=== PATIENT | female | born 1970 | race Caucasian/White ===

== ENCOUNTER 2017-02-01 14:52 | Emergency (ER) | payer MEDICARE, MEDICAID, OTHER | END 2017-02-01 17:53 | disposition left against medical advice (07) | LOC: ER 14:52 | DX: Z53.21 Procedure and treatment not carried out due to patient leaving prior to being seen by health care provider (principal) ==

== ENCOUNTER 2018-02-16 18:08 | Inpatient (IN) | payer MEDICARE, MEDICAID, OTHER ==
[2018-02-16] MEDS ORDERED: NORMAL SALINE 1000 ML 1,000 ML IV ONE (19:14)
--- NOTE | 2018-02-16 19:16 | ER Document Report ---
ED Medical Screen (RME) - General Mode of Arrival: Wheelchair TRAVEL OUTSIDE OF THE [place] 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 Mom states the patient has not been eating as much as normal either and has had decreased urine output. Mom states the patient seems "more delirious" as well. Mom states the patient has had one episode of diarrhea. Mom denies fevers, vomiting, or history of CHF. I have greeted and performed a rapid initial assessment of this patient. A comprehensive ED assessment and evaluation of the patient, analysis of test results, and completion of the medical decision making process will be conducted by additional ED providers. Review of systems: Given by mom at bedside Constitutional: Decrease oral intake. Denies Fevers. EENT: No symptoms reported Cardiovascular: No symptoms reported Respiratory: Cough Gastrointestinal: Diarrhea x1. Denies Vomiting. Genitourinary: No symptoms reported Musculoskeletal: No symptoms reported Skin: No symptoms reported Hematologic/Lymphatic: No symptoms reported Neurological/Psychological: No symptoms reported Yes All other systems reviewed and negative PHYSICAL EXAM GENERAL: Alert, shakes hand but otherwise does not follow commands or answer questions. More agitated than baseline, jumpy. No acute distress. HEAD: Normocephalic, atraumatic. EYES: Pupils equal, round, and reactive to light. Extraocular movements intact. Dry mucous membranes. ENT: Oral mucosa moist, tongue midline. NECK: Full range of motion. Supple. Trachea midline. LUNGS: Diffuse expiratory rhonchi, wet cough, no wheezes or rales. No respiratory distress. HEART: Tachycardic, regular rhythm. No murmurs, gallops, or rubs. ABDOMEN:Non-distended. EXTREMITIES: Moves all 4 extremities spontaneously. NEUROLOGICAL: Baseline according to mom at bedside. PSYCH: More agitated than normal SKIN: Warm, dry, normal turgor. No rashes or lesions noted. (ABBEY MYERS) - Related Data Allergies/Adverse Reactions: Penicillins Allergy (Verified 02/16/18 18:55) Past Medical History - Social History Chew tobacco use (# tins/day): No Frequency of alcohol use: None Drug Abuse: None - Past Medical History Cardiac Medical History: Denies: Hx Coronary Artery Disease, Hx Heart Attack, Hx Hypertension Pulmonary Medical History: Reports: Hx Pneumonia Denies: Hx Asthma, Hx Bronchitis, Hx COPD Neurological Medical History: Denies: Hx Cerebrovascular Accident, Hx Seizures Renal/ Medical History: Denies: Hx Peritoneal Dialysis Musculoskeltal Medical History: Denies Hx Arthritis Past Surgical History: Denies: Hx Hysterectomy, Hx Pacemaker - Immunizations Hx Diphtheria, Pertussis, Tetanus Vaccination: Yes <ABBEY MYERS - Last Filed: 02/16/18 19:22> - Vital signs Vitals: Temp Pulse Resp BP Pulse Ox 97.6 F 108 H 20 105/72 95 02/16/18 18:19 02/16/18 18:19 02/16/18 18:19 02/16/18 18:19 02/16/18 18:19 Course - Laboratory Result Diagrams: 02/16/18 19:45 02/16/18 19:45 <VALARIE LEAHY - Last Filed: 02/16/18 21:04> - Vital Signs Vital signs: Temp Pulse Resp BP Pulse Ox 97.6 F 108 H 20 105/72 95 02/16/18 18:19 02/16/18 18:19 02/16/18 18:19 02/16/18 18:19 02/16/18 18:19 - Laboratory Laboratory results interpreted by me: 02/16/18 02/16/18 02/16/18 19:45 19:45 19:45 RDW 15.9 H Seg Neuts % (Manual) 36 L Band Neutrophils % 32 H PT 22.7 H BUN 36 H Glucose 117 H Doctor's Discharge <ABBEY MYERS - Last Filed: 02/16/18 19:22> <VALARIE LEAHY - Last Filed: 02/16/18 21:04> - Discharge Referrals: WILBERT VELASQUEZ MD [Primary Care Provider] - Follow up as needed Scribe Documentation - Scribe Written by Umme:: Terri Bailey, 02/[id number] acting as scribe for :: Deep <ABBEY MYERS - Last Filed: 02/16/18 19:22>
[2018-02-16 20:01] LABS: VENOUS BLOOD BASE EXCESS 0.7 mmol/L; VENOUS BLOOD HCO3 26.9 mmol/L (20-32); VENOUS BLOOD PCO2 49.5 mmHg (35-63); VENOUS BLOOD PH 7.35 (7.30-7.42)
[2018-02-16 20:07] LABS: INTERNATIONAL RATION (INR) 1.89; PROTHROMBIN TIME 22.7 SEC (11.4-15.4)
[2018-02-16 20:12] LABS: ALANINE AMINOTRANSFERASE 24 U/L (9-52); ALBUMIN 4.2 g/dL (3.5-5.0); ALKALINE PHOSPHATASE 74 U/L (38-126); ANION GAP 15 (5-19); ASPARTATE AMINO TRANSFERASE 16 U/L (14-36); BILIRUBIN,DIRECT 0.3 mg/dL (0.0-0.4); BILIRUBIN,TOTAL 0.3 mg/dL (0.2-1.3); BLOOD UREA NITROGEN 36 mg/dL (7-20); CALCIUM 10.2 mg/dL (8.4-10.2); CARBON DIOXIDE 25 mmol/L (22-30); CHLORIDE 105 mmol/L (98-107); GLUCOSE 117 mg/dL (75-110); POTASSIUM 4.4 mmol/L (3.6-5.0); SODIUM 144.8 mmol/L (137-145); TOTAL PROTEIN 7.9 g/dL (6.3-8.2)
[2018-02-16 20:14] LABS: HEMATOCRIT 44.2 % (36.0-47.0); HEMOGLOBIN 14.6 g/dL (12.0-15.5); MEAN CORPUSCULAR HEMOGLOBIN 27.8 pg (27.0-33.4); MEAN CORPUSCULAR HGB CONC 33.1 g/dL (32.0-36.0); MEAN CORPUSCULAR VOLUME 84 fl (80-97); PLATELET COUNT 282 10^3/uL (150-450); RED BLOOD COUNT 5.27 10^6/uL (3.72-5.28); RED CELL DISTRIBUTION WIDTH 15.9 % (11.5-14.0); WHITE BLOOD COUNT 10.4 10^3/uL (4.0-10.5)
[2018-02-16 20:29] LABS: ABSOLUTE LYMPHOCYTES# (MANUAL) 2.5 10^3/uL (0.5-4.7); ABSOLUTE MONOCYTES # (MANUAL) 0.8 10^3/uL (0.1-1.4); ABSOLUTE NEUTROPHILS# (MANUAL) 7.1 10^3/uL (1.7-8.2); BASOPHILS % (MANUAL) 0 % (0-2); EOSINOPHILS % (MANUAL) 0 % (0-6); LYMPHOCYTES % (MANUAL) 24 % (13-45); MONOCYTES % (MANUAL) 8 % (3-13); SEGMENTED NEUTROPHILS % (MAN) 36 % (42-78); TOTAL CELLS COUNTED 100
--- NOTE | 2018-02-16 20:29 | RADIOLOGY REPORT (SQ) ---
EXAM DESCRIPTION: CHEST 2 VIEWS COMPLETED DATE/TIME: 02/16/2018 8:21 pm REASON FOR STUDY: cough, confusion COMPARISON: 03/13/2011 EXAM PARAMETERS: NUMBER OF VIEWS: two views TECHNIQUE: Digital Frontal and Lateral radiographic views of the chest acquired. RADIATION DOSE: NA LIMITATIONS: none FINDINGS: LUNGS AND PLEURA: Right lower lobe airspace disease. Lungs otherwise grossly clear. MEDIASTINUM AND HILAR STRUCTURES: No masses or contour abnormalities. HEART AND VASCULAR STRUCTURES: Heart stable in size. No evidence for failure. BONES: No acute findings. HARDWARE: None in the chest. OTHER: No other significant finding. IMPRESSION: RIGHT LOWER LOBE AIRSPACE DISEASE COMPATIBLE WITH PNEUMONIA. RECOMMEND FOLLOWUP RADIOGR APHS 4 TO 6 WEEKS TO ENSURE RESOLUTION. TECHNICAL DOCUMENTATION: JOB ID: [id number] [employer]- All Rights Reserved Reading location - IP/workstation name: [email or web address]
[2018-02-16 20:33] LABS: ANISOCYTOSIS SLIGHT; PLATELET COMMENT ADEQUATE
[2018-02-16 20:34] LABS: TOXIC VACUOLATION PRESENT
[2018-02-16 20:35] LABS: OVALOCYTES SLIGHT; POIKILOCYTOSIS SLIGHT; POLYCHROMASIA SLIGHT
[2018-02-16 20:36] LABS: BAND NEUTROPHILS % (MANUAL) 32 % (3-5)
[2018-02-16] MEDS ORDERED: CEFTRIAXONE INJ 1000 MG VIAL IV ONE (20:42)
--- NOTE | 2018-02-16 20:42 | ER Document Report ---
ED General - General Chief Complaint: Nonproductive Cough Stated Complaint: COUGH Time Seen by Provider: 02/16/18 19:04 Mode of Arrival: Wheelchair Notes: Patient is a 47-year-old female with a history of microcephaly and department for chief complaint of 5 days of worsening congested cough and mother states that since yesterday patient has been agitated, refusing anything, has reduced eating and drinking because of this. Mom states this is her "delirium" that she gets when she gets ill. No recorded fevers, no vomiting, only one episode of loose stools. Patient is on a pured diet, has only had pneumonia once before. 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 TRAVEL OUTSIDE OF THE [place] IN LAST 30 DAYS: No - Related Data Allergies/Adverse Reactions: Penicillins Allergy (Verified 02/16/18 18:55) Past Medical History - General Information source: Parent - Social History Smoking Status: Never Smoker Chew tobacco use (# tins/day): No Frequency of alcohol use: None Drug Abuse: None Lives with: Family Family History: Reviewed & Not Pertinent Patient has suicidal ideation: No Patient has homicidal ideation: No - Past Medical History Cardiac Medical History: Denies: Hx Coronary Artery Disease, Hx Heart Attack, Hx Hypertension Pulmonary Medical History: Reports: Hx Pneumonia Denies: Hx Asthma, Hx Bronchitis, Hx COPD Neurological Medical History: Denies: Hx Cerebrovascular Accident, Hx Seizures Renal/ Medical History: Denies: Hx Peritoneal Dialysis Musculoskeltal Medical History: Denies Hx Arthritis Surgical Hx: Negative Past Surgical History: Denies: Hx Hysterectomy, Hx Pacemaker - Immunizations Hx Diphtheria, Pertussis, Tetanus Vaccination: Yes Hx Pneumococcal Vaccination: 09/12/07 Review of Systems - Review of Systems Constitutional: See HPI EENT: No symptoms reported Cardiovascular: No symptoms reported Respiratory: See HPI Gastrointestinal: See HPI Genitourinary: No symptoms reported Female Genitourinary: No symptoms reported Musculoskeletal: No symptoms reported Skin: No symptoms reported Hematologic/Lymphatic: No symptoms reported Neurological/Psychological: See HPI Physical Exam - Vital signs Vitals: Temp Pulse Resp BP Pulse Ox 97.6 F 108 H 20 105/72 95 02/16/18 18:19 02/16/18 18:19 02/16/18 18:19 02/16/18 18:19 02/16/18 18:19 - Notes Notes: GENERAL: Patient nonverbal, restless, makes moaning sounds, does make eye contact, not responding to me otherwise HEAD: Normocephalic, atraumatic. EYES: Pupils equal, round, and reactive to light. Extraocular movements intact. ENT: Oral mucosa moist, tongue midline. NECK: Full range of motion. Supple. Trachea midline. LUNGS: Clear to auscultation bilaterally, no wheezes, rales, or rhonchi. No respiratory distress. Minimal tachypnea. Frequent congested sounding cough. HEART: Tachycardia with no extrasystoles noted. No murmur ABDOMEN: Soft, non-tender. Non-distended. Bowel sounds present in all 4 quadrants. EXTREMITIES: Moves all 4 extremities spontaneously. No edema, normal radial and dorsalis pedis pulses bilaterally. No cyanosis. BACK: no cervical, thoracic, lumbar midline tenderness. No saddle anesthesia, normal distal neurovascular exam. SKIN: Warm, dry, normal turgor. No rashes or lesions noted. Course - Re-evaluation Re-evalutation: Patient was frequent congested cough, soft abdomen, mildly agitated, nonverbal. Tachycardia noted, mom states her baseline blood pressure is 90s over 60s approximately. No fever. No hypoxia. Chemistry unremarkable, lactic acid is not elevated, venous blood gas is unremarkable. Suspect pneumonia, initiating antibiotics. Chest x-ray shows right lower lobe infiltrate, CBC shows no leukocytosis but significant bandemia at 32%. We lost initial access with the IV, will attempt to obtain more access. Spoke with Dr. Stallworth, internal medicine, patient will be admitted to telemetry. Spoke with mom about central line access, she declines, afterwards I was able to obtain 18-gauge right AC access and the nurse was able to obtain a 20-gauge left forearm access. Antibiotics and IV fluids infusing. Stable at time of admission. - Vital Signs Vital signs: Temp Pulse Resp BP Pulse Ox 97.6 F 108 H 19 106/66 93 02/16/18 18:19 02/16/18 18:19 02/16/18 21:31 02/16/18 21:31 02/16/18 21:31 - Laboratory Result Diagrams: 02/16/18 19:45 02/16/18 19:45 Laboratory results interpreted by me: 06/03/2902/16/18 02/16/18 19:45 19:45 19:45 RDW 15.9 H Seg Neuts % (Manual) 36 L Band Neutrophils % 32 H PT 22.7 H BUN 36 H Glucose 117 H Discharge - Discharge Clinical Impression: Tachycardia, Bandemia Pneumonia Qualifiers: Pneumonia type: due to unspecified organism Laterality: right Lung location: lower lobe of lung Qualified Code(s): J18.1 - Lobar pneumonia, unspecified organism Condition: Fair Disposition: ADMITTED INPATIENT Admitting Provider: Hospitalist Unit Admitted: Telemetry
[2018-02-16] MEDS ORDERED: AZITHROMYCIN INJ 500 MG VIAL IV ONE (20:43)
[2018-02-16] MEDS ORDERED: CETIRIZINE 10 MG TABLET PO ONE (22:02)
[2018-02-16] MEDS ORDERED: LORAZEPAM 1 MG TABLET PO ONE (22:02)
[2018-02-16] MEDS ORDERED: LORAZEPAM INJ 2 MG/1 ML VIAL IV ONE ×2 (22:10→22:55)
[2018-02-16] MEDS ORDERED: LORAZEPAM INJ 2 MG/1 ML VIAL ONE (22:13)
--- NOTE | 2018-02-16 22:54 | EKG REPORT ---
SEVERITY:- OTHERWISE NORMAL ECG - SINUS TACHYCARDIA : Confirmed by: Génesis Kunz MD 16-Feb-2018 22:53:17
[2018-02-16] MEDS ORDERED: LORAZEPAM INJ 2 MG/1 ML VIAL IV PRN (23:24)
[2018-02-16] MEDS ORDERED: ACETAMINOPHEN 650 MG SUPP.RECT PR PRN (23:48)
[2018-02-17] MEDS: NORMAL SALINE 1000 ML 1,000 ML IV PRN
[2018-02-17 05:43] LABS: ABSOLUTE EOSINOPHILS # (AUTO) 0.1 10^3/uL (0.0-0.6); ABSOLUTE LYMPHOCYTES (AUTO) 2.2 10^3/uL (0.5-4.7); ABSOLUTE MONOCYTES (AUTO) 1.1 10^3/uL (0.1-1.4); ABSOLUTE NEUT (AUTO) 5.7 10^3/uL (1.7-8.2); BASOPHILS % (AUTO) 0.1 % (0-2); EOSINOPHILS % (AUTO) 1.3 % (0-6); HEMATOCRIT 35.8 % (36.0-47.0); LYMPHOCYTES % (AUTO) 24.1 % (13-45); MEAN CORPUSCULAR HEMOGLOBIN 28.2 pg (27.0-33.4); MEAN CORPUSCULAR HGB CONC 32.9 g/dL (32.0-36.0); MEAN CORPUSCULAR VOLUME 86 fl (80-97); MONOCYTES % (AUTO) 12.4 % (3-13); PLATELET COUNT 187 10^3/uL (150-450); RED BLOOD COUNT 4.17 10^6/uL (3.72-5.28); SEGMENTED NEUTROPHILS % (AUTO) 62.1 % (42-78); TOTAL CELLS COUNTED % (AUTO) 100 %; WHITE BLOOD COUNT 9.2 10^3/uL (4.0-10.5)
--- NOTE | 2018-02-17 05:51 | PDOC H&P ---
History of Present Illness Admission Date/PCP: 02/16/18 23:04 WILBERT VELASQUEZ MD Patient complains of: Cough History of Present Illness: VANNA RM is a 47 year old female with history of microcephaly and recurrent aspiration. Presents with cough and agitation. In the emergency room she is found to have bandemia, nonproductive cough, hypothermia and tachycardia. She is found to have infiltrate of the right lower lobe suggestive of aspiration pneumonia. Started on empiric antibiotics and referred to the hospitalist for admission. Patient's mother is at bedside verifies full CODE STATUS and history of aspiration. Patient at baseline is unable to follow commands, requiring Ativan for sedation. Past Medical History Cardiac Medical History: Denies: Coronary Artery Disease, Myocardial Infarction, Hypertension Pulmonary Medical History: Reports: Pneumonia Denies: Asthma, Bronchitis, Chronic Obstructive Pulmonary Disease (COPD) Neurological Medical History: Denies: Seizures Musculoskeltal Medical History: Denies: Arthritis Hematology: Denies: Anemia Past Surgical History Past Surgical History: Denies: Hysterectomy, Pacemaker Social History Information Source: Relative Lives with: Family Smoking Status: Never Smoker Frequency of Alcohol Use: None Hx Recreational Drug Use: No Drugs: None Hx Prescription Drug Abuse: No - Advance Directive Resuscitation Status: Full Code Family History Family History: None Parental Family History Reviewed: Yes Children Family History Reviewed: Yes Sibling(s) Family History Reviewed.: Yes Medication/Allergy Home Medications: Align PO DAILY 07/30/11 Calcium 600 mg PO BID 07/30/11 Cetirizine HCl 10 mg PO DAILY 07/30/11 Docusate Sodium 100 mg PO BID 07/30/11 Fortical spray DAILY 07/30/11 Lactulose 6 tbs PO DAILY 07/30/11 Levothyroxine Sodium 0.1 mg PO DAILY 07/30/11 Magnesium PO DAILY 07/30/11 Megestrol Acetate 20 mg PO BID 07/30/11 Melatonin 5 mg PO HSP PRN 07/30/11 Miralax PO DAILY 07/30/11 Omeprazole 20 mg PO BID 07/30/11 Patanol drop BID 07/30/11 Vitamin E 400 mg PO DAILY 07/30/11 Allergies/Adverse Reactions: Penicillins Allergy (Verified 02/16/18 18:55) Review of Systems ROS unobtainable: Due to mental status Physical Exam Vital Signs: Temp Pulse Resp BP Pulse Ox 98.2 F 78 20 91/51 L 95 02/17/18 04:54 02/17/18 04:54 02/17/18 04:54 02/17/18 04:54 02/17/18 04:54 Pulse Oximeter Continuous Start: 02/16/18 23: 25 Freq: RTQ4 Status: Active Document 02/17/18 04:00 EST (Rec: 02/17/18 04:34 EST [email or web address]) Pulse Oximetry Assessment Equipment Usage Equipment Standby Continuous SpO2 Machine # [id number] Additional RT Notes Other Patient doesn't allow pulse ox to be placed on finger. Nurse aware. Intake & Output 02/15/18 02/16/18 02/17/18 11:59 11:59 11:59 Weight 37.8 kg General appearance: PRESENT: severe distress, thin. ABSENT: cooperative, disheveled Head exam: ABSENT: normocephalic Eye exam: PRESENT: conjunctiva pink, EOMI, PERRLA. ABSENT: scleral icterus Ear exam: PRESENT: normal external ear exam Mouth exam: PRESENT: dry mucosa, tongue midline Neck exam: ABSENT: carotid bruit, JVD, lymphadenopathy, thyromegaly Respiratory exam: PRESENT: accessory muscle use, crackles, decreased breath sounds, rales, retraction. ABSENT: chest wall tenderness Cardiovascular exam: PRESENT: RRR, tachycardia Pulses: PRESENT: normal dorsalis pedis pul Vascular exam: PRESENT: normal capillary refill GI/Abdominal exam: PRESENT: normal bowel sounds, soft. ABSENT: distended, guarding, mass, organolmegaly, rebound, tenderness Rectal exam: PRESENT: deferred Extremities exam: PRESENT: full ROM. ABSENT: calf tenderness, clubbing, pedal edema Neurological exam: PRESENT: altered, awake, CN II-XII grossly intact, aphasic. ABSENT: alert, oriented to person, oriented to place, oriented to time, oriented to situation, reflexes normal, abnormal gait Psychiatric exam: PRESENT: agitated Skin exam: PRESENT: dry, intact, warm. ABSENT: cyanosis, rash Results Impressions: Chest X-Ray 02/16/18 19:14 IMPRESSION: RIGHT LOWER LOBE AIRSPACE DISEASE COMPATIBLE WITH PNEUMONIA. RECOMMEND FOLLOWUP RADIOGRAPHS 4 TO 6 WEEKS TO ENSURE RESOLUTION. Assessment & Plan - Diagnosis (1) Pneumonia Qualifiers: Pneumonia type: aspiration pneumonia Laterality: right Lung location: lower lobe of lung Qualified Code(s): J18.1 - Lobar pneumonia, unspecified organism Is this a current diagnosis for this admission?: Yes Plan: Empiric antibiotics, albuterol and Atrovent, follow-up CBC and blood culture, speech therapy, consider NG tube and reconsideration of CODE STATUS (2) Bandemia Is this a current diagnosis for this admission?: Yes Plan: Concern for sepsis, follow-up CBC and lactic acid (3) Tachycardia Is this a current diagnosis for this admission?: Yes Plan: IV fluid challenge. - Time Time Spent: 50 to 70 Minutes - Inpatient Certification Medical Necessity: Need Close Monitoring Due to Risk of Patient Decompensation
[2018-02-17 05:56] LABS: ANION GAP 12 (5-19); BLOOD UREA NITROGEN 26 mg/dL (7-20); CALCIUM 8.3 mg/dL (8.4-10.2); CARBON DIOXIDE 20 mmol/L (22-30); CHLORIDE 114 mmol/L (98-107); GLUCOSE 98 mg/dL (75-110); HEMOGLOBIN 11.8 g/dL (12.0-15.5); POTASSIUM 4.2 mmol/L (3.6-5.0); SODIUM 145.8 mmol/L (137-145)
[2018-02-17] MEDS ORDERED: LEVOTHYROXINE SODIUM 0.025 MG TABLET PO SCH ×2 (06:00→10:00)
[2018-02-17] MEDS ORDERED: LEVOTHYROXINE SODIUM 0.1 MG TABLET PO SCH ×2 (06:00→10:00)
[2018-02-17] MEDS: HEPARIN SOD (PORCINE) 5,000 UNIT/ML 1 ML SYRINGE SUBCUT SCH ×3 (06:03→21:12)
[2018-02-17] MEDS: IPRATROPIUM/ALBUTEROL 0.5-2.5 MG/3 ML AMPUL NEB PRN (08:57)
[2018-02-17] MEDS: IPRATROPIUM/ALBUTEROL 0.5-2.5 MG/3 ML AMPUL NEB SCH ×2 (09:11→20:20)
[2018-02-17] MEDS ORDERED: SERTRALINE HCL 50 MG TABLET PO SCH (10:00)
[2018-02-17] MEDS: LEVOFLOXACIN 750 MG/D5W RTU 750 MG/150 ML RTUPB IV SCH (11:08)
[2018-02-17 11:25] LABS: PATH REVIEW PATHOLOGIST REVIEWED
[2018-02-17] MEDS ORDERED: RIVAROXABAN 10 MG TABLET PO ONE (14:00)
--- NOTE | 2018-02-17 18:09 | PDOC PROGRESS REPORT ---
Subjective Progress Note for:: 02/17/18 Subjective:: The patient is a 47-year-old female with history of microcephaly and recurrent issues with aspiration. She presented to the emergency room with increased cough and congestion. She was found to have evidence of sepsis with hypothermia, tachycardia, hypotension and a right lower lobe infiltrate suggestive of aspiration pneumonia. She was started on IV Levaquin. Today when I saw her sepsis symptoms are improving. She is sitting up in the bed and is eating with fairly good appetite. She has been evaluated by speech therapy who plans to perform a video swallow on Tuesday. I spoke at length to the family at the bedside regarding the plan of care. All of their questions have been answered. The patient herself is awake and alert but nonverbal. A review of systems could not be obtained. Reason For Visit: ASPIRATION PNEUMONIA, MICROCEPHALY Physical Exam Vital Signs: Temp Pulse Resp BP Pulse Ox 97.2 F 101 H 28 H 132/92 H 98 02/17/18 15:41 02/17/18 15:41 02/17/18 15:41 02/17/18 15:41 02/17/18 15:41 Pulse Oximeter Continuous Start: 02/16/18 23: 25 Freq: RTQ4 Status: Hold Document 02/17/18 09:06 [facility] (Rec: 02/17/18 09:09 [facility] [email or web address]) Pulse Oximetry Assessment Equipment Usage Equipment Standby Continuous SpO2 Machine # 0 Intake & Output 02/16/18 02/17/18 02/18/18 06:59 06:59 06:59 Intake Total 828 240 Balance 828 240 Weight 37.8 kg General appearance: PRESENT: other - She is an ill-appearing 47-year-old female. She is nonverbal. She is frequently coughing with congestion. She is in no acute distress. Head exam: PRESENT: atraumatic, normocephalic Mouth exam: PRESENT: moist, tongue midline Respiratory exam: PRESENT: other - Coarse breath sounds noted throughout all lung mars Cardiovascular exam: PRESENT: RRR. ABSENT: diastolic murmur, rubs, systolic murmur GI/Abdominal exam: PRESENT: normal bowel sounds, soft. ABSENT: distended, guarding, mass, organolmegaly, rebound, tenderness Rectal exam: PRESENT: deferred Extremities exam: PRESENT: full ROM. ABSENT: calf tenderness, clubbing, pedal edema Neurological exam: PRESENT: alert, awake, other - She has microcephaly Psychiatric exam: PRESENT: appropriate affect, normal mood. ABSENT: homicidal ideation, suicidal ideation Skin exam: PRESENT: dry, intact, warm. ABSENT: cyanosis, rash Results Laboratory Results: 02/17/18 05:31 02/17/18 05:31 02/17/18 02/17/18 05:31 05:31 WBC 9.2 RBC 4.17 Hgb 11.8 L D Hct 35.8 L MCV 86 MCH 28.2 MCHC 32.9 RDW 16.0 H Plt Count 187 Seg Neutrophils % 62.1 Lymphocytes % 24.1 Monocytes % 12.4 Eosinophils % 1.3 Basophils % 0.1 Absolute Neutrophils 5.7 Absolute Lymphocytes 2.2 Absolute Monocytes 1.1 Absolute Eosinophils 0.1 Absolute Basophils 0.0 Sodium 145.8 H Potassium 4.2 Chloride 114 H Carbon Dioxide 20 L Anion Gap 12 BUN 26 H Creatinine 0.59 Est GFR ( Amer) > 60 Est GFR (Non-Af Amer) > 60 Glucose 98 Calcium 8.3 L Impressions: Chest X-Ray 02/16/18 19:14 IMPRESSION: RIGHT LOWER LOBE AIRSPACE DISEASE COMPATIBLE WITH PNEUMONIA. RECOMMEND FOLLOWUP RADIOGRAPHS 4 TO 6 WEEKS TO ENSURE RESOLUTION. Assessment & Plan - Diagnosis (1) Sepsis Is this a current diagnosis for this admission?: Yes Plan: Present on admission manifested by hypothermia, hypotension, tachycardia, bandemia as well as evidence of pneumonia. She also had encephalopathy. Her sepsis symptoms are improving. She is clearly responding to treatment. (2) Aspiration pneumonia Is this a current diagnosis for this admission?: Yes Plan: This is the first day of treatment with IV Levaquin. She does seem to be responding to this. If she worsens could consider broadening her coverage. Overall she is improving. Speech therapy has evaluated and will do a video swallow on Tuesday. (3) Acute metabolic encephalopathy Is this a current diagnosis for this admission?: Yes Plan: Likely secondary to sepsis. According to the sister at the bedside today she is getting back to her normal self. She was quite confused and a little combative when she came into the hospital which is quite unlike her. (4) Microcephaly Is this a current diagnosis for this admission?: Yes Plan: The patient's family takes excellent care of her at home. (5) Precipitous drop in hematocrit Is this a current diagnosis for this admission?: Yes Plan: Secondary to hemodilution. She will have a CBC drawn in the morning. (6) Hypernatremia Is this a current diagnosis for this admission?: Yes Plan: Likely secondary to IV fluids. She will have a level drawn in the morning. (7) Severe protein-calorie malnutrition Is this a current diagnosis for this admission?: Yes Plan: Continue to encourage good p.o. intake. Her BMI is 15. (8) Full code status Is this a current diagnosis for this admission?: Yes - Time Time Spent with patient: 25-34 minutes - Inpatient Certification Medical Necessity: Need For IV Fluids - Inpatient hospitalization remains necessary. Overall the patient has improved. She is requiring parenteral antibiotics for aspiration pneumonia. She will have a video swallow on Tuesday. Timing of disposition will be determined by her clinical course, Need for IV Antibiotics, Other
[2018-02-17] MEDS ORDERED: HYDROCODONE BIT/HOMATROPINE SYRUP 5 ML UDCUP PO PRN (18:15)
[2018-02-17] MEDS ORDERED: MONTELUKAST SODIUM 10 MG TABLET PO ONE (19:15)
[2018-02-17] MEDS: LORAZEPAM 1 MG TABLET PO PRN (19:40)
[2018-02-17] MEDS ORDERED: DOCUSATE SODIUM 100 MG CAPSULE PO ONE (21:00)
[2018-02-17] MEDS: MELATONIN 3 MG TABLET PO SCH (21:10)
[2018-02-17] MEDS: MEGESTROL ACETATE 20 MG TABLET PO SCH (21:10)
[2018-02-17] MEDS: ACETAMINOPHEN 325 MG TABLET PO PRN (21:11)
[2018-02-18] MEDS: NORMAL SALINE 1000 ML 1,000 ML IV PRN (01:05)
[2018-02-18] MEDS: IPRATROPIUM/ALBUTEROL 0.5-2.5 MG/3 ML AMPUL NEB PRN (04:23)
[2018-02-18] MEDS ORDERED: (PENDING PHARMACY ID) (Levothyroxine Sodium [Synthroid] 125 MCG) PO SCH (06:00)
[2018-02-18] MEDS: BENZONATATE 100 MG CAPSULE PO PRN ×3 (06:40→21:41)
[2018-02-18] MEDS: HEPARIN SOD (PORCINE) 5,000 UNIT/ML 1 ML SYRINGE SUBCUT SCH (06:41)
[2018-02-18] MEDS: IPRATROPIUM/ALBUTEROL 0.5-2.5 MG/3 ML AMPUL NEB SCH ×2 (08:23→20:26)
[2018-02-18] MEDS: LEVOTHYROXINE SODIUM 0.1 MG TABLET PO SCH (09:32)
[2018-02-18] MEDS: LEVOTHYROXINE SODIUM 0.025 MG TABLET PO SCH (09:32)
[2018-02-18] MEDS: DOCUSATE SODIUM 100 MG CAPSULE PO SCH ×2 (09:33→19:00)
[2018-02-18] MEDS: GUAIFENESIN 600 MG TABLET.SA PO SCH ×2 (09:33→21:42)
[2018-02-18] MEDS: MEGESTROL ACETATE 20 MG TABLET PO SCH ×3 (09:33→21:43)
[2018-02-18] MEDS: LACTOBACILLUS ACIDOPHILUS 250 MG TAB PO SCH (09:33)
[2018-02-18] MEDS: FAMOTIDINE 20 MG TABLET PO SCH ×2 (09:33→18:59)
[2018-02-18] MEDS: SERTRALINE HCL 50 MG TABLET PO SCH (09:34)
[2018-02-18] MEDS: POLYETHYLENE GLYCOL 3350 POWDER 17 GM/1 PACKET PO SCH (09:34)
[2018-02-18] MEDS: FLUTICASONE NASAL SPRAY 50 MCG/SPRY 120 SPRAY/16 GM NASL SCH (09:35)
[2018-02-18] MEDS: LEVOFLOXACIN 750 MG/D5W RTU 750 MG/150 ML RTUPB IV SCH (09:36)
[2018-02-18] MEDS: LACTULOSE SYRUP 20 GM/30 ML UDCUP PO SCH ×2 (09:37→18:41)
[2018-02-18] MEDS: DEXTROSE 5%-1/2 NORMAL SALINE 1,000 ML IV PRN ×2 (09:37→19:02)
[2018-02-18] MEDS ORDERED: BIFIDOBACTERIUM INFANTIS 4 MG PO SCH (10:00)
[2018-02-18] MEDS ORDERED: (PENDING PHARMACY ID) (Ranitidine Hcl [Zantac 150 Mg Tablet] 150 MG) PO SCH (10:00)
[2018-02-18] MEDS ORDERED: CETIRIZINE 10 MG TABLET PO SCH (10:00)
[2018-02-18] MEDS ORDERED: (PENDING PHARMACY ID) (Lactulose [Constulose 10 Gm/15 Ml Oral Solution] 30 ML) PO SCH (10:00)
[2018-02-18] MEDS ORDERED: HYDROCODONE BIT/HOMATROPINE 5-1.5 MG TABLET PO PRN (10:02)
--- NOTE | 2018-02-18 10:16 | PDOC PROGRESS REPORT ---
Subjective Progress Note for:: 02/18/18 Subjective:: Patient is seen resting in bed. 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 She is awake and alert. She has a congested cough. Her mother is at the bedside. States she is acting much more like her baseline. She has had no issues overnight. She has had no fevers. She is starting to eat and drink more. Unable to do review of systems due to patient's mentation. Reason For Visit: ASPIRATION PNEUMONIA, MICROCEPHALY Physical Exam Vital Signs: Temp Pulse Resp BP Pulse Ox 98.5 F 92 28 H 103/61 96 02/18/18 07:39 02/18/18 07:39 02/18/18 07:39 02/18/18 07:39 02/18/18 08:23 Pulse Oximeter Continuous Start: 02/16/18 23: 25 Freq: RTQ4 Status: Hold Document 02/17/18 09:06 DOMINIC (Rec: 02/17/18 09:09 [facility] [email or web address]) Pulse Oximetry Assessment Equipment Usage Equipment Standby Continuous SpO2 Machine # 0 Intake & Output 02/17/18 02/18/18 02/19/18 06:59 06:59 06:59 Intake Total 828 2240 Balance 828 2240 Weight 37.8 kg 40.9 kg General appearance: PRESENT: no acute distress, thin, well-developed, other - Neck contracted to the left Head exam: PRESENT: atraumatic, normocephalic Eye exam: PRESENT: conjunctiva pink, EOMI, PERRLA. ABSENT: scleral icterus Ear exam: PRESENT: normal external ear exam Mouth exam: PRESENT: moist, tongue midline Teeth exam: PRESENT: poor dentation Neck exam: ABSENT: carotid bruit, JVD, lymphadenopathy, thyromegaly Respiratory exam: PRESENT: rhonchi - Scattered bilaterally, symmetrical, unlabored Cardiovascular exam: PRESENT: RRR. ABSENT: diastolic murmur, rubs, systolic murmur Pulses: PRESENT: normal dorsalis pedis pul Vascular exam: PRESENT: normal capillary refill GI/Abdominal exam: PRESENT: normal bowel sounds, soft. ABSENT: distended, guarding, mass, organolmegaly, rebound, tenderness Rectal exam: PRESENT: deferred Extremities exam: PRESENT: full ROM. ABSENT: calf tenderness, clubbing, pedal edema Neurological exam: PRESENT: alert, awake, CN II-XII grossly intact, aphasic Psychiatric exam: PRESENT: flat affect Skin exam: PRESENT: dry, intact, warm. ABSENT: cyanosis, rash Results Laboratory Results: 02/17/18 05:31 02/17/18 05:31 Impressions: Chest X-Ray 02/16/18 19:14 IMPRESSION: RIGHT LOWER LOBE AIRSPACE DISEASE COMPATIBLE WITH PNEUMONIA. RECOMMEND FOLLOWUP RADIOGRAPHS 4 TO 6 WEEKS TO ENSURE RESOLUTION. Assessment & Plan - Diagnosis (1) Acute metabolic encephalopathy Is this a current diagnosis for this admission?: Yes Plan: Improving back towards baseline according to family. 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 (2) Aspiration pneumonia Qualifiers: Aspiration pneumonia type: unspecified Laterality: right Lung location: lower lobe of lung Qualified Code(s): J69.0 - Pneumonitis due to inhalation of food and vomit Is this a current diagnosis for this admission?: Yes Plan: Right lower lobe infiltrate on chest x-ray. She has been treated with IV Levaquin for the last 2 days. Blood cultures are negative at this point. She has no leukocytosis or bandemia presently. Her neck is contracted somewhat to the left. She is at risk for current aspiration due to her microencephaly (3) Bandemia Is this a current diagnosis for this admission?: Yes Plan: Resolved with IV antibiotics and fluids, secondary to right lower lobe pneumonia. (4) Hypernatremia Is this a current diagnosis for this admission?: Yes (5) Sepsis Is this a current diagnosis for this admission?: Yes Plan: Resolved she is no longer tachycardic. Baseline blood pressure normally runs according to family 90s-110 systolic (6) Severe protein-calorie malnutrition Is this a current diagnosis for this admission?: Yes Plan: Dietary are following. Speech is following as well. Nutritional supplements at their direction. She is now improved in her appetite. - Time Time Spent with patient: 25-34 minutes Total Critical Time (Minutes): 25 Medications reviewed and adjusted accordingly: Yes Anticipated discharge: Home with Homehealth
[2018-02-18] MEDS: RIVAROXABAN 10 MG TABLET PO SCH (11:30)
[2018-02-18] MEDS ORDERED: RIVAROXABAN 10 MG TABLET PO SCH (17:00)
[2018-02-18] MEDS ORDERED: MONTELUKAST SODIUM 10 MG TABLET PO SCH (18:00)
[2018-02-18] MEDS: MELATONIN 3 MG TABLET PO SCH (21:41)
[2018-02-18] MEDS: CETIRIZINE 10 MG TABLET PO SCH (21:42)
[2018-02-18] MEDS: LORAZEPAM 1 MG TABLET PO PRN (21:43)
[2018-02-19] MEDS: ACETAMINOPHEN 325 MG TABLET PO PRN (00:37)
[2018-02-19] MEDS: DEXTROSE 5%-1/2 NORMAL SALINE 1,000 ML IV PRN (04:32)
[2018-02-19] MEDS: LEVOTHYROXINE SODIUM 0.025 MG TABLET PO SCH (06:44)
[2018-02-19] MEDS: LEVOTHYROXINE SODIUM 0.1 MG TABLET PO SCH (06:44)
[2018-02-19] MEDS: MEGESTROL ACETATE 20 MG TABLET PO SCH ×3 (06:44→21:17)
[2018-02-19 08:45] LABS: ANION GAP 8 (5-19); BLOOD UREA NITROGEN 7 mg/dL (7-20); CALCIUM 8.9 mg/dL (8.4-10.2); CARBON DIOXIDE 22 mmol/L (22-30); CHLORIDE 117 mmol/L (98-107); GLUCOSE 102 mg/dL (75-110); POTASSIUM 4.4 mmol/L (3.6-5.0); SODIUM 147.4 mmol/L (137-145)
[2018-02-19] MEDS: IPRATROPIUM/ALBUTEROL 0.5-2.5 MG/3 ML AMPUL NEB SCH ×2 (08:50→20:24)
--- NOTE | 2018-02-19 08:52 | PDOC PROGRESS REPORT ---
Subjective Progress Note for:: 02/19/18 Subjective:: Patient is seen resting in bed. 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 She is presently sleeping. She has a congested cough. Her mother is at the bedside. States she is acting much more like her baseline. She did not sleep well according to her mother. She has had no fevers. She is starting to eat and drink more. Unable to do review of systems due to patient's mentation. Reason For Visit: ASPIRATION PNEUMONIA, MICROCEPHALY Physical Exam Vital Signs: Temp Pulse Resp BP Pulse Ox 97.2 F 65 20 100/53 L 95 02/19/18 03:15 02/19/18 07:00 02/19/18 03:15 02/19/18 03:15 02/19/18 03:15 Pulse Oximeter Continuous Start: 02/16/18 23: 25 Freq: RTQ4 Status: Hold Document 02/17/18 09:06 DOMINIC (Rec: 02/17/18 09:09 DOMINIC [email or web address]) Pulse Oximetry Assessment Equipment Usage Equipment Standby Continuous SpO2 Machine # 0 Intake & Output 02/18/18 02/19/18 02/20/18 06:59 06:59 06:59 Intake Total 2240 3339 Balance 2240 3339 Weight 40.9 kg 41.4 kg General appearance: PRESENT: no acute distress, thin, well-developed Head exam: PRESENT: atraumatic, normocephalic Eye exam: PRESENT: conjunctiva pink, EOMI, PERRLA. ABSENT: scleral icterus Ear exam: PRESENT: normal external ear exam Mouth exam: PRESENT: moist, neck supple, tongue midline Teeth exam: PRESENT: poor dentation Neck exam: ABSENT: carotid bruit, JVD, lymphadenopathy, thyromegaly Respiratory exam: PRESENT: rhonchi, symmetrical, unlabored. ABSENT: rales, wheezes Cardiovascular exam: PRESENT: RRR. ABSENT: diastolic murmur, rubs, systolic murmur Pulses: PRESENT: normal dorsalis pedis pul Vascular exam: PRESENT: normal capillary refill GI/Abdominal exam: PRESENT: normal bowel sounds, soft. ABSENT: distended, guarding, mass, organolmegaly, rebound, tenderness Rectal exam: PRESENT: deferred Extremities exam: PRESENT: full ROM. ABSENT: calf tenderness, clubbing, pedal edema Neurological exam: PRESENT: alert, motor sensory deficit, aphasic - due to microencephaly Psychiatric exam: PRESENT: appropriate affect, normal mood. ABSENT: homicidal ideation, suicidal ideation Focused psych exam: PRESENT: other Skin exam: PRESENT: dry, warm Results Laboratory Results: 02/17/18 05:31 Impressions: Chest X-Ray 02/16/18 19:14 IMPRESSION: RIGHT LOWER LOBE AIRSPACE DISEASE COMPATIBLE WITH PNEUMONIA. RECOMMEND FOLLOWUP RADIOGRAPHS 4 TO 6 WEEKS TO ENSURE RESOLUTION. Assessment & Plan - Diagnosis (1) Acute metabolic encephalopathy Is this a current diagnosis for this admission?: Yes Plan: Back close to her baseline. 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 (2) Aspiration pneumonia Qualifiers: Aspiration pneumonia type: unspecified Laterality: right Lung location: lower lobe of lung Qualified Code(s): J69.0 - Pneumonitis due to inhalation of food and vomit Is this a current diagnosis for this admission?: Yes Plan: Right lower lobe infiltrate on chest x-ray. She has been treated with IV Levaquin for the last 2 days. Blood cultures are negative at this point. She has no leukocytosis or bandemia presently. Her neck is contracted somewhat to the left. She is at risk for current aspiration due to her microencephaly (3) Bandemia Is this a current diagnosis for this admission?: Yes Plan: Resolved with IV antibiotics and fluids, secondary to right lower lobe pneumonia. (4) Hypernatremia Is this a current diagnosis for this admission?: Yes (5) Sepsis Is this a current diagnosis for this admission?: Yes Plan: Resolved she is no longer tachycardic. Baseline blood pressure normally runs according to family 90s-110 systolic (6) Severe protein-calorie malnutrition Is this a current diagnosis for this admission?: Yes Plan: Dietary are following. She is now eating close to 100% of her meals Speech is following as well. Nutritional supplements at their direction. She is now improved in her appetite. - Time Time Spent with patient: 25-34 minutes Medications reviewed and adjusted accordingly: Yes Anticipated discharge: Home Within: within 48 hours
[2018-02-19] MEDS ORDERED: DEXTROSE 5%-1/2 NORMAL SALINE 1,000 ML IV PRN (09:11)
[2018-02-19] MEDS ORDERED: DEXTROSE 5%-1/4 NORMAL SALINE 1,000 ML IV PRN (09:11)
[2018-02-19] MEDS: LACTOBACILLUS ACIDOPHILUS 250 MG TAB PO SCH (09:13)
[2018-02-19] MEDS: FAMOTIDINE 20 MG TABLET PO SCH ×2 (09:13→17:22)
[2018-02-19] MEDS: DOCUSATE SODIUM 100 MG CAPSULE PO SCH ×2 (09:13→17:23)
[2018-02-19] MEDS: LEVOFLOXACIN 750 MG/D5W RTU 750 MG/150 ML RTUPB IV SCH (09:14)
[2018-02-19] MEDS: SERTRALINE HCL 50 MG TABLET PO SCH (09:14)
[2018-02-19] MEDS: POLYETHYLENE GLYCOL 3350 POWDER 17 GM/1 PACKET PO SCH (09:14)
[2018-02-19] MEDS: GUAIFENESIN 600 MG TABLET.SA PO SCH ×2 (09:14→21:17)
[2018-02-19] MEDS: MONTELUKAST SODIUM 10 MG TABLET PO SCH (09:14)
[2018-02-19] MEDS: FLUTICASONE NASAL SPRAY 50 MCG/SPRY 120 SPRAY/16 GM NASL SCH (09:15)
[2018-02-19] MEDS: LACTULOSE SYRUP 20 GM/30 ML UDCUP PO SCH ×2 (09:15→17:34)
[2018-02-19] MEDS: RIVAROXABAN 10 MG TABLET PO SCH (11:07)
[2018-02-19] MEDS: LORAZEPAM 1 MG TABLET PO PRN (21:17)
[2018-02-19] MEDS: CETIRIZINE 10 MG TABLET PO SCH (21:17)
[2018-02-19] MEDS: MELATONIN 3 MG TABLET PO SCH (21:17)
[2018-02-20] MEDS: MEGESTROL ACETATE 20 MG TABLET PO SCH (05:34)
[2018-02-20] MEDS: LEVOTHYROXINE SODIUM 0.025 MG TABLET PO SCH (05:34)
[2018-02-20] MEDS: LEVOTHYROXINE SODIUM 0.1 MG TABLET PO SCH (05:35)
[2018-02-20 08:10] LABS: ABSOLUTE EOSINOPHILS # (AUTO) 0.2 10^3/uL (0.0-0.6); ABSOLUTE LYMPHOCYTES (AUTO) 2.2 10^3/uL (0.5-4.7); ABSOLUTE NEUT (AUTO) 2.5 10^3/uL (1.7-8.2); BASOPHILS % (AUTO) 0.3 % (0-2); EOSINOPHILS % (AUTO) 3.2 % (0-6); HEMATOCRIT 35.2 % (36.0-47.0); HEMOGLOBIN 11.6 g/dL (12.0-15.5); LYMPHOCYTES % (AUTO) 37.1 % (13-45); MEAN CORPUSCULAR HEMOGLOBIN 27.7 pg (27.0-33.4); MEAN CORPUSCULAR VOLUME 84 fl (80-97); MONOCYTES % (AUTO) 17.4 % (3-13); PLATELET COUNT 285 10^3/uL (150-450); RED CELL DISTRIBUTION WIDTH 16.6 % (11.5-14.0); TOTAL CELLS COUNTED % (AUTO) 100 %
[2018-02-20] MEDS: IPRATROPIUM/ALBUTEROL 0.5-2.5 MG/3 ML AMPUL NEB SCH (09:06)
[2018-02-20] MEDS ORDERED: SODIUM CHLORIDE NASAL SPRAY 44 ML NASL PRN (09:30)
[2018-02-20] MEDS ORDERED: LEVOFLOXACIN 750 MG TABLET PO SCH (10:00)
--- NOTE | 2018-02-20 10:13 | RADIOLOGY REPORT (SQ) ---
EXAM DESCRIPTION: FAVIOIE SWALLOW COMPLETED DATE/TIME: 02/20/2018 9:13 am REASON FOR STUDY: aspiration pneumonia COMPARISON: None. TECHNIQUE: Videofluoroscopic swallowing examination was performed in conjunction with speech patholo gy. Videofluoroscopic imaging was obtained and reviewed and these are the findings: RADIATION DOSE: 2.9 minutes 1 images saved to PACS. LIMITATIONS: None FINDINGS: The patient was brought into the fluoro room and placed upright on a modified barium swall ow chair. The patient was then given multiple consistencies mixed with barium to swallow under live fluoroscopic video guidance. According to the Speech Pathologist there was tracheal aspiration seen with nectar thick consistency. Trace aspiration was also seen from residuals. Please refer to the [facility] pathology report for further details. IMPRESSION: ASPIRATION SEEN WITH NECTAR THICK CONSISTENCIES WELL WITH RESIDUALS.PLEASE SEE [facility] PATHOLOGIST REPORT FOR OTHER FINDINGS AND RECOMMENDATIONS. COMMENT: NONE Quality ID [id number]: Final reports for procedures using fluoroscopy that document radiation exposure adelaide shaheen, or exposure time and number of fluorographic images (if radiation exposure indices are not avail able) TECHNICAL DOCUMENTATION: JOB ID: [id number] [employer]- All Rights Reserved Reading location - IP/workstation name: [email or web address]
[2018-02-20] MEDS ORDERED: NA PHOS,M-B/NA PHOS,DI-BA (ADULT) 133 ML ENEMA PR PRN (10:51)
[2018-02-20] MEDS: SERTRALINE HCL 50 MG TABLET PO SCH (11:09)
[2018-02-20] MEDS: MONTELUKAST SODIUM 10 MG TABLET PO SCH (11:10)
[2018-02-20] MEDS: GUAIFENESIN 600 MG TABLET.SA PO SCH (11:10)
[2018-02-20] MEDS: LACTOBACILLUS ACIDOPHILUS 250 MG TAB PO SCH (11:10)
[2018-02-20] MEDS: DOCUSATE SODIUM 100 MG CAPSULE PO SCH (11:11)
[2018-02-20] MEDS: POLYETHYLENE GLYCOL 3350 POWDER 17 GM/1 PACKET PO SCH (11:11)
[2018-02-20] MEDS: FAMOTIDINE 20 MG TABLET PO SCH (11:11)
[2018-02-20] MEDS: RIVAROXABAN 10 MG TABLET PO SCH (11:12)
[2018-02-20] MEDS: LACTULOSE SYRUP 20 GM/30 ML UDCUP PO SCH (11:32)
[2018-02-20] MEDS: FLUTICASONE NASAL SPRAY 50 MCG/SPRY 120 SPRAY/16 GM NASL SCH (11:32)
[2018-02-20] MEDS ORDERED: BISACODYL 10 MG SUPP.RECT PR ONE (12:30)
--- NOTE | 2018-02-20 14:20 | ST Inp Modified Barium Swallow ---
Medical Diagnosis - Medical Diagnoses Medical Diagnosis Description & ICD-10 Code(s): pneumonia, dysphagia R13.10 ST Inpatient [facility] - General Date: 02/20/18 Date of Onset: 02/16/18 - admission date - History History Obtained From: Parent/Caregiver - mother, Other - EMR -: Medical - per EMR: history of bandemia, tachycardia, microcephaly, recurrent aspiration. Patient less alert over weekend, diet changed to nectar liquids and puree solids. Mother reports at home patient having thin liquids via spoon sips and soft/mashed solids. Mother also reports having previously thickened liquids , however, this caused constipation due to reduced hydration. Mother also reports some delayed coughing after meals. Medications: Medications Reviewed Allergies: Refer to medical record - Subjective Current Nutritional Means: PO Current PO Diet: Pureed, Thickened liquids Current Symptoms: Hx of asp. pneumonia Pain: Caregiver/family reports, 0/5, unable to communicate - Objective Assessment: Upright, Left Lateral - patient's neutral position is withhead forward and elongated neck. - Food Trials Food Trials Used: Thin liquids, Honey-thickened liquids, [place] thick liquids, Pureed The Patient: fed by caregiver, via spoon - Assessment Labial Function: Impaired Lingual Function: Within Normal Limits Mandibular Function: Within Normal Limits Laryngeal Function: no volitional swallow, no volitional cough/clear - Pharyngeal Stage Initiation of Pharyngeal Stage: Delayed Reflex Delay Time (seconds): 3 Decreased Laryngeal Elevation: No Reduced Velo-Pharyngeal Closure: no Reduced Pressure Generation: No Reduced Tongue Base Retraction: No Pre-Swallowing Pooling in Valleculae: Moderate Pre-Swallowing Pooling in Pyriforms: None Reduced Thyro-Hyiod Approximation: Yes - mild Reduced Epiglottic Excursion: No Reduced Pharyngeal Peristalsis: No Post Swallow Residuals in Valleculae: Mild Post Swallow Residuals in Pyriforms: Mild - Impression/Summary Laryngeal Penetration: Yes, during swallow, after swallow - with residuals Tracheal Aspiration: yes, silent, during swallow, after swallow - with nectar thick trials Productive Cough: No Effective Clearing: no Patient Presents With: Oral-Pharyngeal dysph., Mild-Moderate Risk of Aspiration: Moderate Risk Due To: Patient demonstrated prateek aspiration of nectar thick liquids x2 ( first 2 trials given). Patient then presented with puree, honey thick liquids, and thin liquids. No subsequent aspiration seen on other trials. Aspiration of residuals was also seen after the swallow. No reaction to aspiration seen, no cough or throat clear noted. Aspiration on first 2 trials may be due to reduced coordination on first presentations as the patient was able to tolerate thin liquids later in the study without prateek aspiration. - Recommendations Solid Diet Recommendations: Pureed Liquid Diet Recommendations: [place]-Thick - with free water Strict Aspitarion Precautions: Yes Dysphagia Therapy with FUEL AGENT: No Recommended Techniques: Fully Upright During Meal, Liquids by Teaspoon Only, Small Bites and Sips Supervision: requires assistance Other Recommendations: Discussed results with physician and patient's mother. Educated mother on risk of aspiration and aspiration pneumonia with PO diet. Due to inconsistency of aspiration on study, recommend continuing with nectar thick liquids and puree solids and free water protocol. Also discussed options of feeding tube with additional PO pleasure feeds. - Time Total Time: 25 Total Timed Minutes: 25 Charge G Code? - - -: Yes ST F.L. Impairment Category - Rationale Based On Rationale Based On: Func. Asses. Tool Results - Swallowing Current G8996: CL 60-79% Impaired Goal G8997: CL 60-79% Impaired Discharge G8998: CL 60-79% Impaired
--- NOTE | 2018-02-20 15:39 | PDOC DISCHARGE SUMMARY ---
General - Admit/Disc Date/PCP Admission Date/Primary Care Provider: 02/16/18 23:04 WILBERT VELASQUEZ MD Discharge Date: 02/20/18 - Discharge Diagnosis (1) Acute metabolic encephalopathy Is this a current diagnosis for this admission?: Yes (2) Aspiration pneumonia Is this a current diagnosis for this admission?: Yes (3) Bandemia Is this a current diagnosis for this admission?: Yes (4) Hypernatremia Is this a current diagnosis for this admission?: Yes (5) Sepsis Is this a current diagnosis for this admission?: Yes (6) Severe protein-calorie malnutrition Is this a current diagnosis for this admission?: Yes - Additional Information Resuscitation Status: Full Code Discharge Diet: Regular Discharge Activity: Activity As Tolerated Prescriptions: Levofloxacin [Levaquin 750 mg Tablet] 750 mg PO DAILY #3 tablet Home Medications: Benzonatate [Tessalon Perle 100 mg Capsule] 200 mg PO TIDP PRN 02/17/18 Bifidobacterium Infantis [Align 4 mg Capsule] 4 mg PO DAILY 02/17/18 Cetirizine HCl [Zyrtec 10 mg Tablet] 10 mg PO DAILY 02/17/18 Docusate Sodium [Colace 100 mg Capsule] 100 mg PO BID 02/17/18 Fluticasone Propionate [Flonase Nasal [place] 50 Mcg/[place] 16 gm] 1 spray NASL DAILY 02/17/18 Hydrocodone Bit/Homatropine [Hycodan Syrup 5-1.5 mg/5 ml Ud Cup] 5 ml PO Q6HP PRN 02/17/18 Lactulose [Constulose 10 gm/15 mL Oral Solution] 30 ml PO BID 02/17/18 Levothyroxine Sodium [Synthroid] 125 mcg PO Q6AM 02/17/18 Lorazepam [Ativan 1 mg Tablet] 1 mg PO Q12HP PRN 02/17/18 Megestrol Acetate [Megace 20 mg Tablet] 20 mg PO Q8 02/17/18 Melatonin [Melatonin 3 mg Tablet] 3 mg PO QHS 02/17/18 Montelukast Sodium [Singulair 10 mg Tablet] 10 mg PO QPM 02/17/18 Polyethylene Glycol 3350 [Miralax Powder 17 gm/Packet] 17 gm PO DAILY 02/17/18 Ranitidine HCl [Zantac 150 mg Tablet] 150 mg PO BID 02/17/18 Rivaroxaban [Xarelto] 20 mg PO WSUPPER 02/17/18 Sertraline HCl [Zoloft] 100 mg PO DAILY 02/17/18 Acetaminophen [Tylenol 325 mg Tablet] 650 mg PO Q4HP PRN tablet 02/20/18 Levofloxacin [Levaquin 750 mg Tablet] 750 mg PO DAILY #3 tablet 02/20/18 Sodium Chloride [[place] Nasal [place] 44 ml Bottle] 1 spray NASL Q1HP PRN bottle 02/20/18 History of Present Illness Patient complains of: Altered mental status, cough and fever History of Present Illness: VANNA RM is a 47 year old female with history of microcephaly and recurrent aspiration. Presents with cough and agitation. In the emergency room she is found to have bandemia, nonproductive cough, hypothermia and tachycardia. She is found to have infiltrate of the right lower lobe suggestive of aspiration pneumonia. Started on empiric antibiotics and referred to the hospitalist for admission. Patient's mother is at bedside verifies full CODE STATUS and history of aspiration. Patient at baseline is unable to follow commands, requiring Ativan for sedation. Hospital Course Hospital Course: Patient was admitted to the [facility] on telemetry. She was started on IV Levaquin, Mucinex and nebulizer treatments. She was given IV hydration. Her cough gradually improved. Speech therapy saw the patient in consult. Modified barium cookies study was ordered. This was done today. She was noted to have intermittent aspiration with no specific consistency of liquid or food. She was noted to do fine with thin liquids at times and aspirated at others. This was discussed with mother. Mother states she has had a history of this due to her micro-encephaly. We discussed this likely will worsen as she gets older. Mother would like to avoid PEG tube placement and continue to let her eat and drink. She is back to her baseline mentation. She has had no fever or leukocytosis. Cough is improved. He is ready for discharge home today. Physical Exam Vital Signs: Temp Pulse Resp BP Pulse Ox 98.3 F 92 22 H 109/80 92 02/20/18 12:51 02/20/18 12:51 02/20/18 12:51 02/20/18 12:51 02/20/18 12:51 Pulse Oximeter Continuous Start: 02/16/18 23: 25 Freq: RTQ4 Status: Hold Document 02/17/18 09:06 DOMINIC (Rec: 02/17/18 09:09 DOMINIC [email or web address]) Pulse Oximetry Assessment Equipment Usage Equipment Standby Continuous SpO2 Machine # 0 Intake & Output 02/19/18 02/20/18 02/21/18 06:59 06:59 06:59 Intake Total 3339 1911 225 Balance 3339 1911 225 Weight 41.4 kg 40 kg General appearance: PRESENT: no acute distress, thin, well-developed, other - Microencephaly Head exam: PRESENT: atraumatic, normocephalic Eye exam: PRESENT: conjunctiva pink, EOMI, PERRLA. ABSENT: scleral icterus Ear exam: PRESENT: normal external ear exam Mouth exam: PRESENT: moist, tongue midline Teeth exam: PRESENT: poor dentation Neck exam: ABSENT: carotid bruit, JVD, lymphadenopathy, thyromegaly Respiratory exam: PRESENT: crackles - Right base, symmetrical, unlabored Cardiovascular exam: PRESENT: RRR. ABSENT: diastolic murmur, rubs, systolic murmur Pulses: PRESENT: normal dorsalis pedis pul Vascular exam: PRESENT: normal capillary refill GI/Abdominal exam: PRESENT: normal bowel sounds, soft. ABSENT: distended, guarding, mass, organolmegaly, rebound, tenderness Rectal exam: PRESENT: deferred Extremities exam: PRESENT: calf tenderness Musculoskeletal exam: PRESENT: ambulatory, full ROM Neurological exam: PRESENT: alert, altered, awake, CN II-XII grossly intact, aphasic - Nonverbal due to microencephaly, other Psychiatric exam: PRESENT: appropriate affect Skin exam: PRESENT: dry, intact, warm. ABSENT: cyanosis, rash Results Laboratory Results: 02/20/18 07:50 02/19/18 07:45 02/20/18 07:50 WBC 6.0 RBC 4.20 Hgb 11.6 L Hct 35.2 L MCV 84 MCH 27.7 MCHC 33.0 RDW 16.6 H Plt Count 285 Seg Neutrophils % 42.0 Lymphocytes % 37.1 Monocytes % 17.4 H Eosinophils % 3.2 Basophils % 0.3 Absolute Neutrophils 2.5 Absolute Lymphocytes 2.2 Absolute Monocytes 1.0 Absolute Eosinophils 0.2 Absolute Basophils 0.0 Impressions: Chest X-Ray 02/16/18 19:14 IMPRESSION: RIGHT LOWER LOBE AIRSPACE DISEASE COMPATIBLE WITH PNEUMONIA. RECOMMEND FOLLOWUP RADIOGRAPHS 4 TO 6 WEEKS TO ENSURE RESOLUTION. Modified Barium Swallow 02/20/18 00:00 IMPRESSION: ASPIRATION SEEN WITH NECTAR THICK CONSISTENCIES WELL WITH RESIDUALS.PLEASE SEE SPEECH PATHOLOGIST REPORT FOR OTHER FINDINGS AND RECOMMENDATIONS. Qualifiers - * PATIENT BEING DISCHARGED WITH ANY OF THE FOLLOWING DIAGNOSIS: No Plan Discharge Plan: Discharge home with family. Time Spent: Less than 30 Minutes
[2018-02-20 16:02] VITALS: BP 86/56
== END 2018-02-20 17:07 | disposition home or self-care (01) | DRG 871 ==
LOC: ER 18:08 → EH 23:04 → 3W 02-17 01:58
PROVIDERS: ADMIT Internal Medicine; ATTEND Internal Medicine
DX: A41.9 Sepsis, unspecified organism (principal); J69.0 Pneumonitis due to inhalation of food and vomit; G93.41 Metabolic encephalopathy; E43 Unspecified severe protein-calorie malnutrition; E87.0 Hyperosmolality and hypernatremia; R71.0 Precipitous drop in hematocrit; Z68.1 Body mass index [BMI] 19.9 or less, adult; Q02 Microcephaly; Z88.0 Allergy status to penicillin
CPT/HCPCS: 36415; 71046; 74230; 80048; 80053; 82803; 83605; 85025; 85610; 87040; 93005; 93010; 94640; 96365; 99285; G8978-GP; G8979-GP; G8996-GN; G8997-GN; G8998-GN; J0456; J0696; J1644; J1956; J2060; J3490; J7030; J7620

== ENCOUNTER 2018-08-26 17:42 | Emergency (ER) | payer MEDICARE, OTHER, MEDICAID ==
--- NOTE | 2018-08-26 18:17 | ER Document Report ---
ED Medical Screen (RME) - General Chief Complaint: Fall Injury Stated Complaint: COUGH Time Seen by Provider: 08/26/18 18:11 Mode of Arrival: Wheelchair Information source: Relative TRAVEL OUTSIDE OF THE [place] IN LAST 30 DAYS: No - HPI Patient complains to provider of: fall; possible aspiration Onset: Other - pt. sent here from [facility] -- fell earlier this month but still in pain; family also thinks she may have aspirated. - Related Data Allergies/Adverse Reactions: Penicillins Allergy (Verified 08/26/18 17:43) Past Medical History - Past Medical History Cardiac Medical History: Denies: Hx Coronary Artery Disease, Hx Heart Attack, Hx Hypertension Pulmonary Medical History: Reports: Hx Pneumonia Denies: Hx Asthma, Hx Bronchitis, Hx COPD Neurological Medical History: Denies: Hx Cerebrovascular Accident, Hx Seizures Renal/ Medical History: Denies: Hx Peritoneal Dialysis Musculoskeltal Medical History: Denies Hx Arthritis Past Surgical History: Denies: Hx Hysterectomy, Hx Pacemaker - Immunizations Hx Diphtheria, Pertussis, Tetanus Vaccination: Yes History of Influenza Vaccine for 06/2017 - 11/2017 Season: Yes Physical Exam - Vital signs Vitals: Temp Pulse Resp BP Pulse Ox 98.4 F 103 H 20 98/41 L 96 08/26/18 18:00 08/26/18 18:00 08/26/18 18:00 08/26/18 18:00 08/26/18 18:00 Course - Vital Signs Vital signs: Temp Pulse Resp BP Pulse Ox 98.4 F 103 H 20 98/41 L 96 08/26/18 18:00 08/26/18 18:00 08/26/18 18:00 08/26/18 18:00 08/26/18 18:00 Doctor's Discharge - Discharge Referrals: WILBERT VELASQUEZ MD [Primary Care Provider] - Follow up as needed
--- NOTE | 2018-08-26 19:17 | RADIOLOGY REPORT (SQ) ---
EXAM DESCRIPTION: CHEST 2 VIEWS COMPLETED DATE/TIME: 08/26/2018 6:58 pm REASON FOR STUDY: possible aspiration COMPARISON: 02/16/2018. TECHNIQUE: Frontal and lateral radiographic views of the chest acquired. NUMBER OF VIEWS: Two view. LIMITATIONS: Positioning difficulties. Scoliosis. FINDINGS: LUNGS AND PLEURA: Aeration looks improved compared to prior. Some persistent lingular and right middle lobe opacity, likely scar. Mild blunting of the costophrenic angles, as before. Exter nal soft tissue artifact overlying the right upper lung field. MEDIASTINUM AND HILAR STRUCTURES: Grossly stable. HEART AND VASCULAR STRUCTURES: Grossly stable. BONES: Osteopenic. Markedly scoliotic. HARDWARE: None in the chest. OTHER: No other significant finding. IMPRESSION: Minimal areas of basilar opacity look improved compared to February, likely scarring. TECHNICAL DOCUMENTATION: JOB ID: [id number] [employer]- All Rights Reserved Reading location - IP/workstation name: [email or web address]
[2018-08-26 19:39] LABS: ABSOLUTE EOSINOPHILS # (AUTO) 0.2 10^3/uL (0.0-0.6); ABSOLUTE LYMPHOCYTES (AUTO) 1.9 10^3/uL (0.5-4.7); ABSOLUTE MONOCYTES (AUTO) 0.9 10^3/uL (0.1-1.4); ABSOLUTE NEUT (AUTO) 7.3 10^3/uL (1.7-8.2); BASOPHILS % (AUTO) 0.2 % (0-2); EOSINOPHILS % (AUTO) 1.8 % (0-6); HEMATOCRIT 40.8 % (36.0-47.0); HEMOGLOBIN 13.6 g/dL (12.0-15.5); LYMPHOCYTES % (AUTO) 18.3 % (13-45); MEAN CORPUSCULAR HEMOGLOBIN 29.2 pg (27.0-33.4); MEAN CORPUSCULAR HGB CONC 33.4 g/dL (32.0-36.0); MEAN CORPUSCULAR VOLUME 87 fl (80-97); MONOCYTES % (AUTO) 8.5 % (3-13); PLATELET COUNT 342 10^3/uL (150-450); RED BLOOD COUNT 4.66 10^6/uL (3.72-5.28); RED CELL DISTRIBUTION WIDTH 14.5 % (11.5-14.0); SEGMENTED NEUTROPHILS % (AUTO) 71.2 % (42-78); TOTAL CELLS COUNTED % (AUTO) 100 %; WHITE BLOOD COUNT 10.3 10^3/uL (4.0-10.5)
--- NOTE | 2018-08-26 19:46 | RADIOLOGY REPORT (SQ) ---
EXAM DESCRIPTION: CT LUMBAR SPINE WITHOUT COMPLETED DATE/TIME: 08/26/2018 7:24 pm REASON FOR STUDY: fall COMPARISON: None. TECHNIQUE: Axial images acquired through the lumbar spine without intravenous contrast. Images revi ewed with lung, soft tissue and bone windows. Reconstructed coronal and sagittal MPR images reviewed . All images stored on PACS. All CT scanners at this facility use dose modulation, iterative reconstruction, and/or weight based d osing when appropriate to reduce radiation dose to as low as reasonably achievable (ALARA). [facility]: Dose Right [facility]: CareDose [facility]: Dose Right [facility]: Teradose 4D [facility]: [employer] RADIATION DOSE: mGy. LIMITATIONS: None. FINDINGS: SEGMENTATION: Normal. No transitional anatomy. ALIGNMENT: Convex left scoliotic curve. No listhesis. VERTEBRAL BODIES: Acute appearing upper endplate mild compression deformity along the right aspect of L2. Approximately 30% height loss. Fracture extends to the junction with the pedicle. DISCS: No significant protrusions. Study limited by lack of intrathecal contrast. PEDICLES, TRANSVERSE PROCESSES: As above. Otherwise intact. FACETS, POSTERIOR ELEMENTS: No fractures. No dislocation. No spinal stenosis. HARDWARE: None in the spine. VISUALIZED RIBS: No fractures. SOFT TISSUES: No significant or acute finding in adjacent soft tissues. OTHER: No other significant finding. IMPRESSION: 1. Upper endplate mild compression fracture at L2. TECHNICAL DOCUMENTATION: JOB ID: [id number] Quality ID # [id number]: Final reports with documentation of one or more dose reduction techniques (e.g., Au tomated exposure control, adjustment of the mA and/or kV according to patient size, use of iterative reconstruction technique) 2010 [employer]- All Rights Reserved Reading location - IP/workstation name: [email or web address]
[2018-08-26 19:53] LABS: ALANINE AMINOTRANSFERASE 14 U/L (9-52); ALBUMIN 4.1 g/dL (3.5-5.0); ALKALINE PHOSPHATASE 98 U/L (38-126); ANION GAP 9 (5-19); ASPARTATE AMINO TRANSFERASE 14 U/L (14-36); BILIRUBIN,DIRECT 0.2 mg/dL (0.0-0.4); BILIRUBIN,TOTAL 0.3 mg/dL (0.2-1.3); BLOOD UREA NITROGEN 43 mg/dL (7-20); CALCIUM 9.6 mg/dL (8.4-10.2); CARBON DIOXIDE 27 mmol/L (22-30); CHLORIDE 109 mmol/L (98-107); GLUCOSE 118 mg/dL (75-110); POTASSIUM 4.4 mmol/L (3.6-5.0); SODIUM 144.8 mmol/L (137-145); TOTAL PROTEIN 7.4 g/dL (6.3-8.2)
[2018-08-26] MEDS ORDERED: LIDOCAINE 5% (700 MG) TRANSDERMAL ADH..PATCH TP ONE (20:08)
[2018-08-26] MEDS ORDERED: ACETAMINOPHEN SUSP 160 MG/5 ML ORAL SYRING PO ONE (20:09)
--- NOTE | 2018-08-26 20:10 | ER Document Report ---
ED General - General Chief Complaint: Fall Injury Stated Complaint: COUGH Time Seen by Provider: 08/26/18 18:11 Mode of Arrival: Wheelchair Information source: Parent Cannot obtain history due to: Mentally challenged Notes: Patient is a 47-year-old female with a past medical history of microcephaly, nonverbal at baseline, has a history of dysphagia, presents with her mother due to concerns of grimacing and pain, becoming increasingly agitated, and eating less after having a fall 14 days ago. The patient apparently lost her balance while walking down a ramp at [employer] landing onto her buttocks. She did not sustain any head trauma. The patient was initially completely fine after the incident but mother notes that since that time she has seemed to have progressively worsening discomfort that makes it difficult for her to go from a sitting to standing position. Mother has been giving Tylenol which has provided minimal to no relief. The patient did see her outpatient orthopedic surgeon and a pelvis x-ray was done which is noted to be normal. Mother also reports that approximately 4 or 5 days ago the patient drank a glass of milk and thereafter began coughing and choking. The mother is concerned about the possibility of a new or recurrent aspiration pneumonia. The patient has not had any fever and has not had any coughing outside of episodes of eating and drinking during which she often has coughing or choking. History is otherwise limited as the patient is nonverbal. TRAVEL OUTSIDE OF THE [place] IN LAST 30 DAYS: No - Related Data Allergies/Adverse Reactions: Penicillins Allergy (Verified 08/26/18 17:43) Past Medical History - General Information source: Relative Cannot obtain history due to: Mentally challenged - Social History Smoking Status: Never Smoker Chew tobacco use (# tins/day): No Frequency of alcohol use: None Drug Abuse: None Lives with: Parents Family History: Reviewed & Not Pertinent Patient has suicidal ideation: No Patient has homicidal ideation: No - Past Medical History Cardiac Medical History: Denies: Hx Coronary Artery Disease, Hx Heart Attack, Hx Hypertension Pulmonary Medical History: Reports: Hx Pneumonia Denies: Hx Asthma, Hx Bronchitis, Hx COPD Neurological Medical History: Denies: Hx Cerebrovascular Accident, Hx Seizures Renal/ Medical History: Denies: Hx Peritoneal Dialysis Musculoskeletal Medical History: Denies Hx Arthritis Past Surgical History: Denies: Hx Hysterectomy, Hx Pacemaker - Immunizations Hx Diphtheria, Pertussis, Tetanus Vaccination: Yes Hx Pneumococcal Vaccination: 09/12/07 Review of Systems - Review of Systems -: Yes ROS unobtainable due to patient's medical condition Physical Exam - Vital signs Vitals: Temp Pulse Resp BP Pulse Ox 98.4 F 103 H 20 98/41 L 96 08/26/18 18:00 08/26/18 18:00 08/26/18 18:00 08/26/18 18:00 08/26/18 18:00 Interpretation: Hypotensive - Baseline, Tachycardic Notes: PHYSICAL EXAMINATION: GENERAL: Lying in bed, no acute distress HEAD: Atraumatic, normocephalic. EYES: Pupils equal round and reactive to light, extraocular movements intact, sclera anicteric, conjunctiva are normal. ENT: nares patent, oropharynx clear without exudates. Moist mucous membranes. NECK: Normal range of motion, supple without lymphadenopathy LUNGS: Breath sounds clear to auscultation bilaterally and equal. No wheezes rales or rhonchi. HEART: Regular rate and rhythm without murmurs ABDOMEN: Soft, nontender, normoactive bowel sounds. No guarding, no rebound. No masses appreciated. Back: Diffuse midline tenderness to palpation of the lumbar spinal region. No step-offs or deformities. EXTREMITIES: no pitting or edema. No cyanosis. NEUROLOGICAL: No focal neurological deficits. Moves all extremities spontaneously. PSYCH: Nonverbal SKIN: Warm, Dry, normal turgor, no rashes or lesions noted. Course - Re-evaluation Re-evalutation: 08/26/18 20:16 Patient presents with approximately 12 days of increased agitation after a fall onto her buttock and low back. The patient has had an x-ray of her pelvis as an outpatient which was unremarkable but mother is concerned that the patient has continued to appear to be in pain and grimacing, requiring increased assistance when going from a sitting to standing position. Her physical examination is remarkable for apparent developmental delay, emaciation, but no evidence of step-offs or deformities on back examination. A CT of the lumbar spine does reveal an L2 compression fracture which is consistent with the patient's clinical history. A chest x-ray was also obtained as the mother is concerned that the patient has been demonstrating increased signs of possible aspiration at home around feeding times but is not notable for any evidence of an aspiration pneumonia or pneumonitis. I have advised outpatient follow-up regarding this compression fracture and have likewise begun a pain control regimen at home which will hopefully assist in the patient's agitation. I have also advised that the patient requires a repeat speech assessment given history of coughing and choking around attempts at oral intake. At this time will discharge with return precautions and follow-up recommendations. Verbal discharge instructions given a the bedside and opportunity for questions given. Medication warnings reviewed. Mother is in agreement with this plan and has verbalized understanding of return precautions and the need for primary care follow-up in the next 24-72 hours. - Vital Signs Vital signs: Temp Pulse Resp BP Pulse Ox 98.4 F 103 H 20 128/60 H 96 08/26/18 18:00 08/26/18 18:00 08/26/18 18:00 08/26/18 21:33 08/26/18 18:00 - Laboratory Result Diagrams: 08/26/18 19:30 08/26/18 19:30 Laboratory results interpreted by me: 08/26/18 08/26/18 19:30 19:30 RDW 14.5 H Chloride 109 H BUN 43 H Glucose 118 H - Diagnostic Test Radiology reviewed: Image reviewed, Reports reviewed Radiology results interpreted by me: 08/26/18 20:19 Chest x-ray: No acute infiltrate Discharge - Discharge Clinical Impression: Microcephaly, Severe protein-calorie malnutrition Lumbar compression fracture Qualifiers: Encounter type: initial encounter Lumbar vertebra fracture level: L2 Fracture type: closed Qualified Code(s): S32.020A - Wedge compression fracture of second lumbar vertebra, initial encounter for closed fracture Dysphagia Qualifiers: Dysphagia type: unspecified Qualified Code(s): R13.10 - Dysphagia, unspecified Fall Qualifiers: Encounter type: initial encounter Qualified Code(s): W19.XXXA - Unspecified fall, initial encounter Condition: Stable Disposition: HOME, SELF-CARE Additional Instructions: Your daughter has a compression fracture of her L2 vertebra which is likely the cause of her pain as well as her increasing agitation. She needs to follow-up with her primary care physician for consideration of physical therapy referral as well as possible orthopedic surgical referral. These compression fractures do not require surgical intervention. As we discussed, her chest x-ray does not show any signs of an aspiration pneumonia or pneumonitis. It shows old scarring. However, based on your characterization of her coughing near times of eating or drinking I am concerned that her dysphagia might be worsening. I strongly encourage you to have a repeat speech and swallow assessment. For pain control I advised Tylenol 500 mg every 6 hours scheduled. Please apply the lidocaine patches once every 12 hours as directed on the prescription. You may also apply the topical Voltaren gel as prescribed. If these 3 measures in combination do not control your daughter's pain sufficiently , I have prescribed oxycodone 5 mg tablets which can be used in addition to the above 3 measures. Please give 2.5 mg to 5 mg once every 6 hours only for pain that is not controlled by the above measures. If your getting oxycodone, please also give a stool softening agent such as docusate which can be purchased directly over the counter. Please return to the emergency department immediately if your daughter begins to develop a fever of greater than 101 F, has persistent vomiting, appears to have difficulty breathing, becomes progressively agitated, or has any other symptoms that are worrisome to you. Prescriptions: Diclofenac Sodium [Voltaren] 100 gm TP QID PRN #75 gel..gm. PRN Reason: Lidocaine [Lidoderm 5% (700 mg) Transdermal Patch] 1 patch TP DAILY #30 adh..patch Oxycodone HCl [Oxycontin Ir 5 Mg Tablet] 0.5 - 1 tab PO Q6H PRN #10 tablet PRN Reason: For Pain Referrals: WILBERT VELASQUEZ MD [Primary Care Provider] - Follow up as needed
[2018-08-26 21:34] VITALS: BP 128/60
== END 2018-08-26 21:34 | disposition home or self-care (01) ==
LOC: ER 17:42
DX: S32.020A Wedge compression fracture of second lumbar vertebra, initial encounter for closed fracture (principal); Q02 Microcephaly; E43 Unspecified severe protein-calorie malnutrition; R05 Cough; R13.10 Dysphagia, unspecified; R45.1 Restlessness and agitation; M54.5 Low back pain; W19.XXXA Unspecified fall, initial encounter
CPT/HCPCS: 99284; 36415; 85025; 80053; 71046; 72131; A9270

== ENCOUNTER 2018-10-19 18:27 | Emergency (ER) | payer MEDICARE, OTHER, MEDICAID ==
--- NOTE | 2018-10-19 19:57 | RADIOLOGY REPORT (SQ) ---
EXAM DESCRIPTION: KNEE RIGHT 4 VIEWS COMPLETED DATE/TIME: 10/19/2018 7:48 pm REASON FOR STUDY: injury fall COMPARISON: None. NUMBER OF VIEWS: Four views. TECHNIQUE: AP, lateral, and both oblique radiographic images acquired of the right knee. LIMITATIONS: None. FINDINGS: MINERALIZATION: Osteopenia. BONES: No acute fracture or dislocation. No worrisome bone lesions. JOINT: No effusion. SOFT TISSUES: No soft tissue swelling. No radio-opaque foreign body. OTHER: No other significant finding. IMPRESSION: NEGATIVE STUDY OF THE RIGHT KNEE. NO RADIOGRAPHIC EVIDENCE OF ACUTE INJURY. TECHNICAL DOCUMENTATION: JOB ID: [id number] [employer]- All Rights Reserved Reading location - IP/workstation name: [email or web address]
--- NOTE | 2018-10-20 01:13 | ER Document Report ---
HPI - HPI Patient complains to provider of: dislocated patella Time Seen by Provider: 10/20/18 01:10 Pain Level: 0 Context: 47-year-old handicapped female with active DVT in the left lower extremity and L2 compression fracture presents to the emergency department after a fall at home and a patellar dislocation. Mom says she was helping the patient ambulate as she cannot ambulate on her own and she lost hold of her and she slipped down and she noticed that her patella was lateral and out of place. She went and called for help from someone outside who came and helped to get her in the car. At that time she thinks it got relocated. No other complaints at this time - REPRODUCTIVE Reproductive: DENIES: : Past Medical History - Social History Smoking Status: Never Smoker Family History: Reviewed & Not Pertinent - Past Medical History Cardiac Medical History: Denies: Hx Coronary Artery Disease, Hx Heart Attack, Hx Hypertension Pulmonary Medical History: Reports: Hx Pneumonia Denies: Hx Asthma, Hx Bronchitis, Hx COPD Neurological Medical History: Denies: Hx Cerebrovascular Accident, Hx Seizures Renal/ Medical History: Denies: Hx Peritoneal Dialysis Musculoskeletal Medical History: Denies Hx Arthritis Past Surgical History: Denies: Hx Hysterectomy, Hx Pacemaker - Immunizations Hx Diphtheria, Pertussis, Tetanus Vaccination: Yes Hx Pneumococcal Vaccination: 09/12/07 Vertical Provider Document - INFECTION CONTROL TRAVEL OUTSIDE OF THE [place] IN LAST 30 DAYS: No Course - Re-evaluation Re-evalutation: 10/20/18 01:55 47-year-old handicapped female presents to the emergency department for a patellar dislocation with spontaneous reduction. Mom says that she does have a remote history of that as a teenager. Mom says that she does have an orthopedist who patient sees. Plan is to place patient in a knee immobilizer. There is some associated soft tissue swelling. X-ray was negative for fracture or dislocation. - Vital Signs Vital signs: Temp Pulse Resp BP Pulse Ox 97.9 F 86 20 130/91 H 97 10/19/18 19:26 10/19/18 19:26 10/19/18 19:26 10/19/18 19:26 10/19/18 19:26 Procedures - Immobilization Right Knee Pre-Proc Neuro Vasc Exam: Normal Immobilizer type: Knee immobilizer Performed by: MARY Post-Proc Neuro Vasc Exam: Normal Discharge - Discharge Clinical Impression: Patellar dislocation Qualifiers: Encounter type: initial encounter Laterality: right Qualified Code(s): S83.004A - Unspecified dislocation of right patella, initial encounter Condition: Good Disposition: HOME, SELF-CARE Instructions: Dislocation of the Patella ([facility]) Additional Instructions: Thank you for your patience in the emergency department this evening. You are seen in the emergency department for a dislocated patella that relocated. Because you are susceptible to this we have placed you in a knee immobilizer and it is important to follow-up with orthopedics. It is okay to take it off for bathing and cleaning. If you notice that toes or foot starts to turn blue or dusky please try to readjust the splint as it may be too tight. If you have any other concerns at all please immediately return to the emergency department. Referrals: WILBERT VELASQUEZ MD [Primary Care Provider] - Follow up as needed
[2018-10-20 01:44] VITALS: BP 138/90
== END 2018-10-20 01:45 | disposition home or self-care (01) ==
LOC: ER 18:27
DX: S83.004A Unspecified dislocation of right patella, initial encounter (principal); W18.39XA Other fall on same level, initial encounter; Y92.009 Unspecified place in unspecified non-institutional (private) residence as the place of occurrence of the external cause
CPT/HCPCS: 99283; 73564; L1830

== ENCOUNTER 2019-01-22 14:11 | Emergency (ER) | payer MEDICARE, OTHER, MEDICAID ==
--- NOTE | 2019-01-22 15:06 | ER Document Report ---
ED Medical Screen (RME) - General Chief Complaint: Fall Injury Stated Complaint: FALL Time Seen by Provider: 01/22/19 15:00 Primary Care Provider: WILBERT VELASQUEZ MD [Primary Care Provider] - Follow up as needed Mode of Arrival: Wheelchair Information source: Parent Notes: 48-year-old female presented to ED for complaint of fall yesterday. Mother states she was trying to help her to walk when she tripped over the side of the sidewalk and fell landing on her right side causing pain to her foot and ankle hip pelvis and low back. Patient states she has had similar falls in the past and has had broken bones she is broken her pelvis twice and has had compression fractures. She is in a chair and is nonverbal at this time. There is swelling and tenderness to the right foot and ankle. CT of the pelvis and lumbar area were ordered as well as x-rays of the foot and ankle. Patient will be seen by another provider in the ER. I have greeted and performed a rapid initial assessment of this patient. A comprehensive ED assessment and evaluation of the patient, analysis of test results and completion of medical decision making process will be conducted by an additional ED providers. Dictation of this chart was performed using voice recognition software; therefore, there may be some unintended grammatical errors. TRAVEL OUTSIDE OF THE [place] IN LAST 30 DAYS: No - Related Data Allergies/Adverse Reactions: Penicillins Allergy (Verified 01/22/19 14:18) Past Medical History - Past Medical History Cardiac Medical History: Denies: Hx Coronary Artery Disease, Hx Heart Attack, Hx Hypertension Pulmonary Medical History: Reports: Hx Pneumonia Denies: Hx Asthma, Hx Bronchitis, Hx COPD Neurological Medical History: Denies: Hx Cerebrovascular Accident, Hx Seizures Renal/ Medical History: Denies: Hx Peritoneal Dialysis Musculoskeltal Medical History: Denies Hx Arthritis Past Surgical History: Denies: Hx Hysterectomy, Hx Pacemaker - Immunizations Hx Diphtheria, Pertussis, Tetanus Vaccination: Yes History of Influenza Vaccine for 06/2017 - 11/2017 Season: Yes Doctor's Discharge - Discharge Referrals: WILBERT VELASQUEZ MD [Primary Care Provider] - Follow up as needed
--- NOTE | 2019-01-22 15:43 | RADIOLOGY REPORT (SQ) ---
EXAM DESCRIPTION: FOOT RIGHT COMPLETE COMPLETED DATE/TIME: 01/22/2019 3:25 pm REASON FOR STUDY: fall pain swelling COMPARISON: 01/03/2011. NUMBER OF VIEWS: Three views. TECHNIQUE: AP, lateral and oblique radiographic images acquired of the right foot. LIMITATIONS: None. FINDINGS: MINERALIZATION: Normal. BONES: No acute fracture or dislocation. No worrisome bone lesions. JOINTS: No effusions. SOFT TISSUES: No soft tissue swelling. No foreign body. OTHER: No other significant finding. IMPRESSION: NEGATIVE STUDY OF THE RIGHT FOOT. NO RADIOGRAPHIC EVIDENCE OF ACUTE INJURY. TECHNICAL DOCUMENTATION: JOB ID: [id number] [employer]- All Rights Reserved Reading location - IP/workstation name: [email or web address]
--- NOTE | 2019-01-22 15:44 | RADIOLOGY REPORT (SQ) ---
EXAM DESCRIPTION: ANKLE RIGHT COMPLETE COMPLETED DATE/TIME: 01/22/2019 3:25 pm REASON FOR STUDY: fall pain swelling COMPARISON: 01/03/2011. NUMBER OF VIEWS: Three views. TECHNIQUE: AP, lateral, and oblique radiographic images acquired of the right ankle. LIMITATIONS: None. FINDINGS: MINERALIZATION: Normal. BONES: No acute fracture or dislocation. No worrisome bone lesions. JOINTS: No effusions. SOFT TISSUES: No soft tissue swelling. No foreign body. OTHER: No other significant finding. IMPRESSION: NEGATIVE STUDY OF THE RIGHT ANKLE. NO RADIOGRAPHIC EVIDENCE OF ACUTE INJURY. TECHNICAL DOCUMENTATION: JOB ID: [id number] [employer]- All Rights Reserved Reading location - IP/workstation name: [email or web address]
--- NOTE | 2019-01-22 16:03 | RADIOLOGY REPORT (SQ) ---
EXAM DESCRIPTION: CT LUMBAR SPINE WITHOUT COMPLETED DATE/TIME: 01/22/2019 3:39 pm REASON FOR STUDY: fall pain swelling COMPARISON: 08/26/2018 TECHNIQUE: Axial images acquired through the lumbar spine without intravenous contrast. Images revi ewed with lung, soft tissue and bone windows. Reconstructed coronal and sagittal MPR images reviewed . All images stored on PACS. All CT scanners at this facility use dose modulation, iterative reconstruction, and/or weight based d osing when appropriate to reduce radiation dose to as low as reasonably achievable (ALARA). [facility]: Dose Right [facility]: CareDose [facility]: Dose Right [facility]: Teradose 4D [facility]: [employer] RADIATION DOSE: mGy. LIMITATIONS: Considerable patient movement. FINDINGS: Stable mild compression superior endplate L2. No obvious acute compression fracture. Unc hanged marked scoliosis in spondylosis. No paraspinal hematoma. IMPRESSION: Unchanged fracture superior endplate L2. TECHNICAL DOCUMENTATION: JOB ID: [id number] Quality ID # [id number]: Final reports with documentation of one or more dose reduction techniques (e.g., Au tomated exposure control, adjustment of the mA and/or kV according to patient size, use of iterative reconstruction technique) 2010 [employer]- All Rights Reserved Reading location - IP/workstation name: [email or web address]
--- NOTE | 2019-01-22 16:09 | RADIOLOGY REPORT (SQ) ---
EXAM DESCRIPTION: CT PELVIS WITHOUT COMPLETED DATE/TIME: 01/22/2019 3:39 pm REASON FOR STUDY: fall pain swelling COMPARISON: None. TECHNIQUE: CT scan of the pelvis performed without intravenous or oral contrast. Images reviewed wi th soft tissue and bone windows. Reconstructed coronal and sagittal MPR images reviewed. All images stored on PACS. All CT scanners at this facility use dose modulation, iterative reconstruction, and/or weight based d osing when appropriate to reduce radiation dose to as low as reasonably achievable (ALARA). [facility]: Dose Right [facility]: CareDose [facility]: Dose Right [facility]: Teradose 4D [facility]: [employer] RADIATION DOSE: CT Rad equipment meets quality standard of care and radiation dose reduction techniq ues were employed. CTDIvol: 3.0 - 3.1 mGy. DLP: 182 mGy-cm. mGy. LIMITATIONS: Motion. FINDINGS: Study is limited by the patient movement. Bones are osteopenic. No acute fracture or dis location. Sacral fractures in particular can be occult in osteopenic patients. No pelvic hematoma. IMPRESSION: No fracture identified. TECHNICAL DOCUMENTATION: JOB ID: [id number] Quality ID # [id number]: Final reports with documentation of one or more dose reduction techniques (e.g., Au tomated exposure control, adjustment of the mA and/or kV according to patient size, use of iterative reconstruction technique) 2010 [employer]- All Rights Reserved Reading location - IP/workstation name: [email or web address]
[2019-01-22] MEDS ORDERED: LORAZEPAM 1 MG TABLET PO ONE (17:55)
[2019-01-22] MEDS ORDERED: ACETAMINOPHEN 325 MG TABLET PO ONE (17:55)
[2019-01-22] MEDS ORDERED: HYDROCODONE/ACETAMINOPHEN 5-325 MG TABLET PO ONE (18:08)
--- NOTE | 2019-01-22 18:09 | ER Document Report ---
ED Fall - General Chief Complaint: Fall Injury Stated Complaint: FALL Time Seen by Provider: 01/22/19 15:00 Primary Care Provider: WILBERT VELASQUEZ MD [Primary Care Provider] - Follow up as needed Mode of Arrival: Wheelchair Information source: Parent Notes: Patient is a 48-year-old female with a history of microcephaly, nonverbal, with scoliosis and fairly recent L2 compression fracture who presents to the ER today for fall today. Patient was walking and is unstable usually, requiring mom's help all the time her mother, got her foot and between the road on a curb and rolled her ankle, falling onto her bottom. They are concerned as patient has had a recent compression fracture and also patient is having a lot of pain, swelling and even bruising to her right ankle. She is acting like she is in pain per mom. She did not hit her head or lose consciousness. She is on blood thinners. TRAVEL OUTSIDE OF THE [place] IN LAST 30 DAYS: No - Related data Allergies/Adverse Reactions: Penicillins Allergy (Verified 01/22/19 14:18) Past Medical History - General Information source: Parent - Social History Smoking Status: Never Smoker Chew tobacco use (# tins/day): No Frequency of alcohol use: None Drug Abuse: None Family History: Reviewed & Not Pertinent Patient has suicidal ideation: No Patient has homicidal ideation: No - Past Medical History Cardiac Medical History: Denies: Hx Coronary Artery Disease, Hx Heart Attack, Hx Hypertension Pulmonary Medical History: Reports: Hx Pneumonia Denies: Hx Asthma, Hx Bronchitis, Hx COPD Neurological Medical History: Denies: Hx Cerebrovascular Accident, Hx Seizures Renal/ Medical History: Denies: Hx Peritoneal Dialysis Musculoskeletal Medical History: Denies Hx Arthritis Past Surgical History: Denies: Hx Hysterectomy, Hx Pacemaker - Immunizations Hx Diphtheria, Pertussis, Tetanus Vaccination: Yes Hx Pneumococcal Vaccination: 09/12/07 Review of Systems - Review of Systems Constitutional: No symptoms reported EENT: No symptoms reported Cardiovascular: No symptoms reported Respiratory: No symptoms reported Gastrointestinal: No symptoms reported Genitourinary: No symptoms reported Female Genitourinary: No symptoms reported Musculoskeletal: See HPI Skin: No symptoms reported Hematologic/Lymphatic: No symptoms reported Neurological/Psychological: No symptoms reported Physical Exam - Vital signs Vitals: Pulse Resp Pulse Ox 94 20 94 01/22/19 15:06 01/22/19 15:06 01/22/19 15:06 - Notes Notes: PHYSICAL EXAMINATION: GENERAL: Grunting and swaying back and forth, obviously uncomfortable, in no acute distress. HEAD: Atraumatic, normocephalic. EYES: Pupils equal round and reactive to light, extraocular movements intact, sclera anicteric, conjunctiva are normal. ENT: ear canals without erythema or foreign body, TMs pearly youssef with good bony landmarks, nares patent, oropharynx clear without exudates. Moist mucous membranes. Airway patent NECK: Normal range of motion, supple without lymphadenopathy LUNGS: CTAB and equal. No wheezes rales or rhonchi. HEART: Regular rate and rhythm without murmurs ABDOMEN: Soft, no tenderness. No guarding, no rebound BACK: Scoliosis, otherwise no vertebral tenderness, normal ROM GI/: no CVA tenderness EXTREMITIES: Edema and mild ecchymosis to the lateral malleolus and medial portion of the right foot, tender to palpation, no deformity, no pitting edema. No cyanosis. NEUROLOGICAL: Baseline per mom SKIN: Warm, Dry, normal turgor, no rashes or lesions noted Course - Re-evaluation Re-evalutation: 01/22/19 18:35 CT of the pelvis, lumbar spine and right foot and ankle x-rays negative for any acute pathology, shows stable L2 compression fracture, not worse, patient was given pain medication and right ankle was placed in Fidel wrap. - Vital Signs Vital signs: Temp Pulse Resp BP Pulse Ox 94 20 94 01/22/19 15:06 01/22/19 15:06 01/22/19 15:06 Discharge - Discharge Clinical Impression: Right ankle sprain Qualifiers: Encounter type: initial encounter Involved ligament of ankle: unspecified ligament Qualified Code(s): S93.401A - Sprain of unspecified ligament of right ankle, initial encounter Fall Qualifiers: Encounter type: initial encounter Qualified Code(s): W19.XXXA - Unspecified fall, initial encounter Condition: Stable Disposition: HOME, SELF-CARE Additional Instructions: Return immediately for any new or worsening symptoms. Follow up with primary care provider, call tomorrow to make followup appointment. Prescriptions: Hydrocodone/Acetaminophen [Jane Lew 5-325 mg Tablet] 1 tab PO Q4 PRN #15 tablet PRN Reason: Referrals: WILBERT VELASQUEZ MD [Primary Care Provider] - Follow up as needed
[2019-01-22 18:49] VITALS: BP 115/50
== END 2019-01-22 19:02 | disposition home or self-care (01) ==
LOC: ER 14:11
DX: S93.401A Sprain of unspecified ligament of right ankle, initial encounter (principal); S90.31XA Contusion of right foot, initial encounter; W19.XXXA Unspecified fall, initial encounter; Q02 Microcephaly; Z88.0 Allergy status to penicillin
CPT/HCPCS: 99284; 73610; 73630; 72131; 72192; A9270

== ENCOUNTER → 2020-04-01 | Outpatient (CLI) | payer MEDICARE, OTHER, MEDICAID ==
--- NOTE | 2020-04-01 10:08 | RADIOLOGY REPORT (SQ) ---
EXAM DESCRIPTION: COOKIE SWALLOW IMAGES COMPLETED DATE/TIME: 04/01/2020 9:28 am REASON FOR STUDY: PNEUMONITIS DUE TO INHALATION OF FOOD AND VOMIT/CO R05 COUGH J69.0 PNEUMONITIS D UE TO INHALATION OF FOOD AND VOMIT COMPARISON: None. TECHNIQUE: Videofluoroscopic swallowing examination was performed in conjunction with speech patholo gy. Videofluoroscopic imaging was obtained and reviewed and these are the findings: RADIATION DOSE: Fluoro time 4.14 minutes 1 images saved to PACS. LIMITATIONS: None FINDINGS: The patient was brought into the fluoro room and placed upright on a modified barium swall ow chair. The patient was then given multiple consistencies mixed with barium to swallow under live fluoroscopic video guidance. According to the Speech Pathologist there was trace aspiration seen wit h thin barium. All other consistencies swallowed without incident. Please refer to the speech pathol ogy report for further details. IMPRESSION: TRACE ASPIRATION WITH THIN BARIUM. PLEASE SEE SPEECH PATHOLOGIST REPORT FOR OTHER FINDIN GS AND RECOMMENDATIONS. COMMENT: None Quality ID [id number]: Final reports for procedures using fluoroscopy that document radiation exposure adelaide shaheen, or exposure time and number of fluorographic images (if radiation exposure indices are not avail able) TECHNICAL DOCUMENTATION: JOB ID: [id number] 2010 [employer]- All Rights Reserved Reading location - IP/workstation name: [id number]
--- NOTE | 2020-04-01 16:50 | ST Modified Barium Swallow ---
Recommendation - Recommendations Recommendations: Recommend patient continue with puree solids and nectar thick liquids. May wish to participate in Free Water Protocol, this was explained to the caregiver present. Medical Diagnoses - Medical Diagnoses Medical Diagnosis Description & ICD-10 Code(s): pneumonia, dysphagia R13.10 Other Medical Diagnoses/Co-Morbidities: per caregiver: scoliosis, microenephalopathy, frequent pneumonia. - ICD-10 Tx Diagnosis Coding (1) Cough ICD-10 Code(s): R05 - COUGH (2) Dysphagia, unspecified ICD-10 Code(s): R13.10 - DYSPHAGIA, UNSPECIFIED ST Modified Barium Swallow - General Date: 04/01/20 Referring Physician: Dr. Pate Date of Onset: 02/20/18 - approximate onset Reason for Referral: pneumonia - History -: Medical - Patient's sister was present and assisted with history. The patient was born with microencephalopathy, also has scoliosis resulting in significantly abnormal posture. The patient has a history of freuqent pneumonia, most recently in january of this year. This patient had a MBSS 2 years ago at this facility, at that time aspiration was identified and nectar thick liquids with puree solids were recommended. The patient's sister reports that she is mostly on pureed foods with some other soft solids. She reports that the patient only drinks Ensure, which is nectar thick. She does also report that the patient is given water after meals to help "clear her vocal cords". Medications: per family report: synthroid, mucinex, miralax, align, xarelto Allergies: penicillin - Functional Status Prior Functional Status: INDEPENDENT: feeding - on modified diet Current Functional Limitations: feeding - Subjective Patient/caregiver goal(s): other - ensure no worsening of swallow function Cognitive-Linguistic Function: Severely Impaired Speech Intelligibility: Non-verbal Current Nutritional Means: PO Current PO diet: Pureed, Thickened liquids - nectar Current symptoms: Pneumonia Pain: no signs/symptoms of pain - Objective Assessment: Upright, Left Lateral - Food Trials Used Food trials used: Thin liquids, [place] thick liquids, Pureed The patient: fed by ST - Oral-Motor Skills Dentition: Partial Velo-pharyngeal function: Unremarkable - Assessment Oral prep: Moderately Impaired Labial closure: Adequate Leakage: Anterior - mild Oral stage: Piecemeal Deglutition - Pharyngeal Stage Initiation of Pharyngeal Stage Reflex: Delayed - inconsistently delayed swallow reflex seen Decreased laryngeal elevation: Yes Reduced Velopharyngeal Closure: no Reduced pressure generation: Yes Pre-swallow pooling in valleculae: Moderate Pre-Swallow pooling in pyriforms: Moderate Reduced Thyro-Hyoid approximation: Yes Reduced epiglottic excursion: No Multiple Swallows with: Cleared w/ Liquid Assist Post-swallow residulas vallecular: Moderate Post-Swallow residuals in pyriforms: Mild Post-Swallow Residuals: throughout pharynx - Fall Risk Assessment Medications/Conditions that increase fall risks include: Antidepressants, sedatives, anti-arrhythmic, diuretic, benzodiazipenes, neuroleptics. BP regulation problems, cardiac problems, balance or gait deficits, neurological problems. Is patient considered at risk for falls: yes Fall Risk Actions Taken: No action needed - Behavioral Observations During evaluation process patient: was cooperative - Treatment / Educational Needs: Treatment/Education Needs: Treatment consisted of patient education on the role of the Speech Pathologist. Patient's plan of care and golas were communicated as well as scheduling and attendance policies. Recommendations for initial home program were shared. Patient demonstrated understanding and verbalized agreement. - Impression/Summary Tracheal Aspiration: yes - trace silent aspiration with thin liquids, some trace aspiration with residuals from other textures as well Productive cough: No Effective Clearing: no Patient presents with: Pharyngeal stage dysph. - moderate Risk of Aspiration: Moderate Evaluation and Findings: Patient presents with overall reduced strength and coordination of the swallow. Swallow reflex was inconsistent, at times very timely other very delayed. Trace consistent aspiration of thin liquids were seen, no cough reaction seen with this. Significant pharyngel residue seen with nectar liquids and puree solids, pharyngeal residue increased as texture increased. Sips of nectar liquids did help clear residue from puree. Oral phase also impaired, as the patient had significant lingual residue of puree and poor oral control of bolus. - Recommendations NPO: free water Solid diet recommendations: Pureed Liquid Diet Modification: Thin Strict aspiration precautions: Yes Pt/Family education and followup with MD: Yes Dysphagia therapy with LINK AND LINK KNITTING MACHINE OPERATOR: no - patient does not appear able to participate in skilled dysphagia treatment Recommended techniques: Fully Upright During Meal, Alternate Bites/Sips Supervision: requires assistance Information, Precautions and Recommendations: Family Member (Written), Family Member (Verbal) Other recommendations: Hand out given regarding recommendations for diet texture, as well as Free Water Protocol, educated on free water being given only after oral hygiene had been completed and not with meals. - Time Total Time: 30 - Plan of Care Strategies to optimize patient understanding include:: ongoing assessment of educational needs, implementation of educational strategies, and re-education. - - -: Thank you for the opportunity to work with this patient and his/her family. Should you have any questions about this patient's plan or progress, I can be reached at [phone]. [facility]. Impairment Category - Swallowing Current G8996: CL 60-79% Impaired Goal G8997: CL 60-79% Impaired Discharge G8998: CL 60-79% Impaired
== END ==
LOC: RAD 08:21
PROVIDERS: ATTEND Family Medicine
DX: K21.9 Gastro-esophageal reflux disease without esophagitis (principal); R13.10 Dysphagia, unspecified; R05 Cough; Z87.01 Personal history of pneumonia (recurrent)
CPT/HCPCS: 74230

== ENCOUNTER → 2020-06-04 | Outpatient (CLI) | payer MEDICARE, OTHER, MEDICAID ==
--- NOTE | 2020-06-04 15:11 | RADIOLOGY REPORT (SQ) ---
EXAM DESCRIPTION: CT CHEST WITHOUT IMAGES COMPLETED DATE/TIME: 06/04/2020 2:45 pm REASON FOR STUDY: R91.8 OTHER NONSPECIFIC ABNORMAL FINDING OF LUNG FIELD R91.8 OTHER NONSPECIFIC AB NORMAL FINDING OF LUNG FIELD COMPARISON: Chest x-ray dated 08/26/2018 TECHNIQUE: CT scan performed of the chest without intravenous contrast. Images reviewed with lung, soft tissue and bone windows. Reconstructed coronal and sagittal MPR images reviewed. All images st ored on PACS. All CT scanners at this facility use dose modulation, iterative reconstruction, and/or weight based d osing when appropriate to reduce radiation dose to as low as reasonably achievable (ALARA). [facility]: Dose Right [facility]: CareDose [facility]: Dose Right [facility]: Teradose 4D [facility]: [employer] RADIATION DOSE: CT Rad equipment meets quality standard of care and radiation dose reduction techniq ues were employed. CTDIvol: 3.5 - 3.7 mGy. DLP: 284 mGy-cm. mGy. LIMITATIONS: Study is limited by respiratory motion. FINDINGS: LUNGS AND PLEURA: The lung mars are hyperexpanded. There is linear scarring in the righ t base. There is scarring along the right major fissure. There are focal soft tissue nodules in the left base. 1 demonstrates a small calcification centrally. The other shows no calcification. On l kasia windows the noncalcified nodule measures 11.1 mm. The nodule with the central calcification roseann ures 16.9 mm. These changes may represent scar although neoplasm cannot be excluded. HILAR AND MEDIASTINAL STRUCTURES: No identified masses or abnormal nodes. No obvious aneurysm. HEART AND VASCULAR STRUCTURES: No aneurysm. No pericardial effusion. UPPER ABDOMEN: No significant findings. Limited exam. THYROID AND OTHER SOFT TISSUES: No masses. No adenopathy. BONES: There is thoracic scoliosis with concavity toward the left. HARDWARE: None in the chest. OTHER: No other significant findings. IMPRESSION: 1. COPD with scattered areas of linear scar. 2. Several nodular opacities in the left base as described. The largest measures 16.9 mm in contain s a small central calcification. This could represent scar less likely acute airspace disease. A 2n d nodule measures 11.1 mm. It is noncalcified by well-circumscribed. Please see below for recommend ed follow-up. PET-CT may be helpful for further characterization. The patient would be high risk fo r developing pneumothorax with percutaneous lung biopsy due to underlying lung disease. COMMENT: FLEISCHNER CRITERIA FOR FOLLOW-UP OF PULMONARY NODULES Incidentally detected new nodules in persons 35 or older. HIGH RISK: History of smoking or other known risk factors. >8 mm single solid nodule: LOW and HIGH RISK: consider CT, PET/CT or biopsy at 3 mo. TECHNICAL DOCUMENTATION: JOB ID: [id number] Quality ID # [id number]: Final reports with documentation of one or more dose reduction techniques (e.g., Au tomated exposure control, adjustment of the mA and/or kV according to patient size, use of iterative reconstruction technique) 2010 [employer]- All Rights Reserved Reading location - IP/workstation name: [email or web address]
== END ==
LOC: RAD 14:16
PROVIDERS: ATTEND Internal Medicine Pulmonary Disease
DX: R91.8 Other nonspecific abnormal finding of lung field (principal); J44.9 Chronic obstructive pulmonary disease, unspecified
CPT/HCPCS: 71250

== ENCOUNTER → 2020-07-01 | Outpatient (CLI) | payer MEDICARE, OTHER, MEDICAID ==
--- NOTE | 2020-07-02 09:06 | RADIOLOGY REPORT (SQ) ---
EXAM DESCRIPTION: PET CT SKULL/THIGH IMAGES COMPLETED DATE/TIME: 07/01/2020 3:00 pm REASON FOR STUDY: R91.8 OTHER NONSPECIFIC ABNORMAL FINDING OF LUNG FIELD R91.8 OTHER NONSPECIFIC AB NORMAL FINDING OF LUNG FIELD COMPARISON: CT of the chest without contrast from 06/04/2020. RADIONUCLIDE AND DOSE: 10.1 mCi F18 FDG The route of agent administration: Intravenous FASTING BLOOD SUGAR: 75 mg/dl CONTRAST TYPE AND DOSE: No CT contrast given. TECHNIQUE: Blood glucose level was verified. Above dose of FDG was injected intravenously. 2-D seg mented attenuation correction images were obtained from the base of the skull to the midthighs. Nonc ontrast CT images were obtained for attenuation correction and fusion with emission images. CT image s were performed without oral or intravenous contrast and are not sensitive for parenchymal lesions. A series of overlapping emission PET images were obtained. Images reviewed and manipulated at [facility] work station by the radiologist. Images stored on PACS. LIMITATIONS: None. FINDINGS: HEAD AND NECK: No areas of abnormal metabolic activity in the soft tissues of the head and neck. CHEST: As described on the prior CT, there are several clustered nodular opacities in the left lower lobe including the 12 x 8 mm solid circumscribed nodule of interest on image 76 of series 3 - on PET these nodules demonstrate no abnormal FDG uptake. The spiculated opacity that abuts the interlobar f issure in the right middle lobe (image 70 of series 3) is associated with mild volume loss demonstrat es faint FDG uptake on PET with a maximum SUV of 1.9 (below the uptake in the mediastinal blood pool) . The nodular opacities in the right lower lobe (image 75 of series 3 and image 78 of series 3) also demonstrate no abnormal FDG uptake. ABDOMEN AND PELVIS: The liver demonstrates homogeneous FDG uptake with an average SUV of 2.5. There is expected physiologic activity throughout the gastrointestinal and genitourinary tracts. There no areas of abnormal metabolic activity in the abdomen and pelvis. PROXIMAL LOWER EXTREMITIES: No areas of abnormal metabolic activity in the soft tissues of the lower extremities. BONES: No areas of abnormal metabolic activity in the skeleton. ADDITIONAL CT FINDINGS: S shaped rotoscoliosis of the thoracolumbar spine. There are chronic nondisp laced fracture deformities of several right-sided ribs. There is no acute fracture. There is a hiat al hernia. The FDG uptake within the lumen of the thoracic esophagus is likely related to reflux. T he morphology of the liver is noncirrhotic. There is no splenomegaly or adrenal mass. The gallbladd er is present. There is no gross abnormality of the pancreas. There is no hydronephrosis, nephrolit hiasis, hydroureter or ureterolithiasis. The abdominal aorta is nonaneurysmal. There is no retroper itoneal adenopathy, hemorrhage or mass. The urinary bladder is distended. There is no bowel obstruc tion, bowel wall thickening or pericolonic/perienteric inflammation. OTHER: No other findings. IMPRESSION: 1. The circumscribed nodular opacity of interest in the left lower lobe (image 76 of se ginger 3) demonstrates no uptake on PET. There are several additional nodular opacities in the left lo wer lobe and right lower lobe (as detailed above) that also demonstrate no abnormal FDG uptake. It h as suspected these opacities are postinfectious or postinflammatory in etiology and continued CT surv eillance should be considered. 2. Hiatal hernia with likely gastroesophageal reflux. TECHNICAL DOCUMENTATION: JOB ID: [id number] 2010 [employer]- All Rights Reserved Reading location - IP/workstation name: [email or web address]
== END ==
LOC: RAD 12:11
PROVIDERS: ATTEND Internal Medicine Pulmonary Disease
DX: R91.8 Other nonspecific abnormal finding of lung field (principal)
CPT/HCPCS: 78815; A9552